=== PATIENT | male | born 1980 | race Hispanic/Latino ===

== ENCOUNTER 2023-03-13 20:09 | Inpatient (IN) | payer MEDICAID, SELFPAY ==
[2023-03-13 22:13] VITALS: BMI 36.8
[2023-03-13] MEDS ORDERED: Ondansetron PF 4 MG/2 ML Vial IVP PRN (22:27)
[2023-03-13] MEDS ORDERED: HYDROcodone/Acetaminophen 5/325 mg Tablet PO PRN ×2 (22:27→23:03)
[2023-03-14] MEDS ORDERED: HumaLOG 300 UNITS/3 ML VIAL SC SCH (05:00)
[2023-03-14 07:29] LABS: #Monocytes 0.9 thou/uL (0.11-0.59); #Neutrophils 5.6 thou/uL (1.40-6.50); %Basophils 0.1 % (0.0-1.0); %Eosinophils 0.5 % (0.0-10.0); %Lymphocytes 9.6 % (21.0-51.0); %Monocytes 12.4 % (0.0-10.0); %Neutrophils 76.9 % (42.0-75.0); Hemoglobin 10.9 g/dL (14.0-18.0); Mean Corpuscular HGB CONC 30.2 g/dL (32.0-36.0); Mean Corpuscular Hemoglobin 25.4 pg (27.0-31.0); Mean Corpuscular Volume 84.1 fl (78.0-98.0); Mean Platelet Volume 11.3 fL (7.4-10.4); Platelet Count 313 10x3/uL (130-400); RBC Distribution Width 14.9 % (11.5-14.5); Red Blood Cell (RBC) Count 4.29 mill/uL (4.70-6.10); White Blood Cell (WBC) Count 7.3 10x3/uL (4.8-10.8)
[2023-03-14 07:49] LABS: Anion Gap 14 mmol/L (10-20); BUN (Urea Nitrogen) 5 mg/dL (8.9-20.6); Calc. Creatinine Clearance 259 mL/min (70-130); Calcium 8.7 mg/dL (7.8-10.44); Carbon Dioxide 28 mmol/L (22-29); Chloride 103 mmol/L (98-107); Estimated GFR 120; Glucose 181 mg/dL (70-105); Potassium 4.1 mmol/L (3.5-5.1); Sodium 141 mmol/L (136-145)
[2023-03-14] MEDS: Morphine 2 MG/ML VIAL SLOW IVP PRN (08:12)
[2023-03-14] MEDS: Famotidine/PF 20 mg/2ml Vial SLOW IVP SCH ×2 (08:12→20:46)
[2023-03-14] MEDS ORDERED: [UNRECOGNIZED DRUG - OTHER] PO SCH ×2 (09:00→11:30)
[2023-03-14] MEDS ORDERED: Iopamidol-370 76% 500 ML MDV (1 ML CHARGE) ONE (09:28)
[2023-03-14] MEDS ORDERED: Dextrose 50% Abboject 50 ML SYRINGE SLOW IVP PRN (10:57)
[2023-03-14] MEDS ORDERED: Glucagon 1 MG/ML KIT IM PRN (10:57)
[2023-03-14] MEDS ORDERED: Dextrose 5% in Water 1,000 ML IV PRN (10:57)
[2023-03-14] MEDS ORDERED: Furosemide 40 MG/4 ML VIAL SLOW IVP SCH (14:00)
[2023-03-14] MEDS: Insulin Regular 300 UNITS/3 ML VIAL SC PRN (18:18)
[2023-03-15 06:43] LABS: #Monocytes 0.8 thou/uL (0.11-0.59); #Neutrophils 7.7 thou/uL (1.40-6.50); %Basophils 0.1 % (0.0-1.0); %Eosinophils 0.1 % (0.0-10.0); %Lymphocytes 6.5 % (21.0-51.0); %Monocytes 9.1 % (0.0-10.0); %Neutrophils 83.8 % (42.0-75.0); Hemoglobin 11.4 g/dL (14.0-18.0); Mean Corpuscular HGB CONC 30.6 g/dL (32.0-36.0); Mean Corpuscular Hemoglobin 25.7 pg (27.0-31.0); Mean Platelet Volume 11.4 fL (7.4-10.4); Platelet Count 314 10x3/uL (130-400); RBC Distribution Width 14.7 % (11.5-14.5); Red Blood Cell (RBC) Count 4.44 mill/uL (4.70-6.10); White Blood Cell (WBC) Count 9.2 10x3/uL (4.8-10.8)
[2023-03-15 07:05] LABS: Anion Gap 16 mmol/L (10-20); Carbon Dioxide 26 mmol/L (22-29); Chloride 102 mmol/L (98-107); Potassium 3.7 mmol/L (3.5-5.1); Sodium 140 mmol/L (136-145)
[2023-03-15 07:06] LABS: BUN (Urea Nitrogen) 4 mg/dL (8.9-20.6); Calc. Creatinine Clearance 227 mL/min (70-130); Calcium 8.8 mg/dL (7.8-10.44); Estimated GFR 116; Glucose 233 mg/dL (70-105)
[2023-03-15] MEDS: Famotidine/PF 20 mg/2ml Vial SLOW IVP SCH (08:28)
[2023-03-15] MEDS: Morphine 2 MG/ML VIAL SLOW IVP PRN (08:29)
[2023-03-15] MEDS ORDERED: [UNRECOGNIZED DRUG - OTHER] PO SCH (09:00)
[2023-03-15] MEDS ORDERED: Lidocaine 1% (PF) 30 ML VIAL ONE (10:02)
[2023-03-15 10:53] LABS: Fluid, pH - Pleural Fld 7.478 (7.60 - 7.66)
[2023-03-15 11:50] LABS: Pleural Fluid, Protein 5.1 g/dL
[2023-03-15 12:48] LABS: RBC Count-Automated (BF) 13739 /cu.mm; WBC/Nucleated-Auto (BF) 1385 /cu.mm
[2023-03-15 12:49] LABS: Body Fluid Source Thoracentesis Fluid; Clarity Cloudy/Turbid (Clear); Tube # EDTA
[2023-03-15 12:50] LABS: BF Color Pink
[2023-03-15 12:57] LABS: BF Segmented Neutrophils 41 %; Cell Count Non Hematic 18 %; Eosinophils 5 %; Lymphocytes 36 %
[2023-03-15] MEDS: Insulin Regular 300 UNITS/3 ML VIAL SC PRN (13:10)
[2023-03-15 15:09] VITALS: BP 144/97; TEMP 98.3
== END 2023-03-15 15:08 | disposition home or self-care (01) | DRG 642 ==
LOC: T4-A 21:30 → OBSVTOIN 03-14 14:24
PROVIDERS: ADMIT Internal Medicine; ATTEND Internal Medicine
PROC: 0W9B3ZZ Drainage of Left Pleural Cavity, Percutaneous Approach (ICD-10-PCS; principal; 2023-03-15)
DX: C96.6 Unifocal Langerhans-cell histiocytosis (principal); C79.51 Secondary malignant neoplasm of bone; J98.11 Atelectasis; J91.0 Malignant pleural effusion; E11.9 Type 2 diabetes mellitus without complications; Z79.899 Other long term (current) drug therapy; Z79.84 Long term (current) use of oral hypoglycemic drugs
CPT/HCPCS: 36415; 36416; 70553; 74177; 80048; 82150; 82465; 82945; 83615; 83986; 84157; 84478; 85025; 85060; 87070; 87205; 88112; 88305; 89051; 96374; 96375; G0378; J1815; J2272; Q9967; S0028

== ENCOUNTER 2024-02-06 14:09 | Inpatient (IN) | payer MEDICAID, SELFPAY ==
[2024-02-06 14:41] VITALS: BMI 37.5
[2024-02-06] MEDS ORDERED: Ondansetron PF 4 MG/2 ML Vial IVP PRN (16:25)
[2024-02-06] MEDS ORDERED: Ondansetron ODT 4 MG TAB PO PRN (16:25)
[2024-02-06] MEDS ORDERED: Acetaminophen 650 MG Suppository PR PRN (16:25)
[2024-02-06] MEDS ORDERED: levETIRAcetam 500 MG (5 mL) VIAL SLOW IVP SCH (16:45)
[2024-02-06] MEDS ORDERED: Dextrose 50% Abboject 50 ML SYRINGE SLOW IVP PRN (17:29)
[2024-02-06] MEDS ORDERED: Glucagon 1 MG/ML KIT IM PRN (17:29)
[2024-02-06] MEDS ORDERED: Dextrose 5% in Water 1,000 ML IV PRN (17:29)
[2024-02-06] MEDS: cefTRIAXone\\ROCEPHIN 2 GM in Sodium Chloride 0.9% 100 ML IVPB SCH (17:47)
[2024-02-06] MEDS: levETIRAcetam 500 MG (5 mL) VIAL SLOW IVP SCH (17:48)
[2024-02-06] MEDS: Acetaminophen 325 MG TAB PO PRN (17:48)
[2024-02-06] MEDS: Vancomycin (BATCH) 2.5 GM in Premix 1 BAG IVPB SCH (18:12)
[2024-02-06] MEDS ORDERED: Vancomycin 1 GM in Sodium Chloride 0.9% 250 ML 250 ML IVPB SCH (21:00)
[2024-02-06] MEDS: Insulin Regular, Human 100 UNIT/ML 10 ML VIAL SC PRN (21:05)
[2024-02-06] MEDS: ACYCLOVIR SODIUM IVPB SCH (23:15)
[2024-02-06] MEDS: SODIUM CHLORIDE 0.9% IVPB SCH (23:15)
[2024-02-07] MEDS: Vancomycin (BATCH) 1.5 GM in Premix 1 BAG IVPB SCH ×2 (01:03→15:14)
[2024-02-07 04:55] LABS: #Basophils Less than 0.03 10x3/uL (0.0-0.2); #Eosinphils Less than 0.03 10x3/uL (0.0-0.7); %Basophils 0.1 % (0.0-1.0); %Eosinophils 0.3 % (0.0-10.0); %Lymphocytes 9.5 % (21.0-51.0); %Monocytes 8.6 % (0.0-10.0); %Neutrophils 81.2 % (42.0-75.0); Hematocrit 42.8 % (42.0-52.0); Hemoglobin 13.2 g/dL (14.0-18.0); Mean Corpuscular HGB CONC 30.8 g/dL (32.0-36.0); Mean Corpuscular Hemoglobin 26.9 pg (27.0-31.0); Mean Corpuscular Volume 87.2 fL (78.0-98.0); Mean Platelet Volume 11.4 fL (7.4-10.4); Platelet Count 188 10x3/uL (130-400); RBC Distribution Width 14.5 % (11.5-14.5); Red Blood Cell (RBC) Count 4.91 mill/uL (4.70-6.10)
[2024-02-07 05:29] LABS: Vancomycin, Random 20.8 ug/mL (See Comment)
[2024-02-07 05:39] LABS: Anion Gap 9 mmol/L (10-20); BUN (Urea Nitrogen) 6 mg/dL (8.9-20.6); Calc. Creatinine Clearance 207 mL/min (70-130); Calcium 8.8 mg/dL (7.8-10.44); Carbon Dioxide 37 mmol/L (22-29); Chloride 99 mmol/L (98-107); Estimated GFR 112; Glucose 289 mg/dL (70-105); Potassium 3.5 mmol/L (3.5-5.1); Sodium 141 mmol/L (136-145)
[2024-02-07] MEDS: levETIRAcetam 500 MG (5 mL) VIAL SLOW IVP SCH (09:40)
[2024-02-07] MEDS: Insulin Regular, Human 100 UNIT/ML 10 ML VIAL SC PRN (11:45)
[2024-02-07] MEDS ORDERED: Sodium Bicarbonate 2.5 MEQ/5 ML SDV ONE (12:47)
[2024-02-07] MEDS: ALPRAZolam 1 MG TAB PO PRN (15:14)
[2024-02-07 15:29] LABS: CSF Source CSF; Clarity Clear (Clear); Tube # 4
[2024-02-07 15:35] LABS: CSF, Protein 30.1 mg/dL (15-40)
[2024-02-07] MEDS ORDERED: HYDROcodone/Acetaminophen 5/325 mg Tablet PO PRN (17:41)
[2024-02-07] MEDS: Senokot S 8.6-50 MG TAB PO SCH ×2 (19:13→21:01)
[2024-02-07] MEDS: Furosemide 40 MG TAB PO SCH (21:00)
[2024-02-07] MEDS: levETIRAcetam 500 MG TAB PO SCH (21:00)
[2024-02-08 01:07] LABS: Amphetamine Not Detected (NotDetected); Barbiturates Screen Not Detected (NotDetected); Benzodiazepine Screen Not Detected (NotDetected); Cocaine Metabolite Screen Not Detected (NotDetected); Methadone Not Detected (NotDetected); Methamphetamine Not Detected (NotDetected); Opiate Screen Not Detected (NotDetected); Oxycodone Screen Not Detected (NotDetected); Phencyclidine (PCP) Not Detected (NotDetected); THC/Cannabinoid Screen Not Detected (NotDetected); Tricyclic Screen Not Detected (NotDetected)
[2024-02-08 06:16] LABS: #Basophils Less than 0.03 10x3/uL (0.0-0.2); %Basophils 0.2 % (0.0-1.0); %Lymphocytes 21.9 % (21.0-51.0); %Neutrophils 57.3 % (42.0-75.0); Hematocrit 48.7 % (42.0-52.0); Mean Corpuscular HGB CONC 30.8 g/dL (32.0-36.0); Mean Corpuscular Hemoglobin 26.8 pg (27.0-31.0); Mean Corpuscular Volume 87.1 fL (78.0-98.0); Mean Platelet Volume 12.6 fL (7.4-10.4); Platelet Count 171 10x3/uL (130-400); RBC Distribution Width 14.2 % (11.5-14.5); Red Blood Cell (RBC) Count 5.59 mill/uL (4.70-6.10)
[2024-02-08 06:30] LABS: Anion Gap 12 mmol/L (10-20); BUN (Urea Nitrogen) 5 mg/dL (8.9-20.6); Calc. Creatinine Clearance 226 mL/min (70-130); Calcium 9.2 mg/dL (7.8-10.44); Carbon Dioxide 34 mmol/L (22-29); Chloride 99 mmol/L (98-107); Estimated GFR 115; Glucose 215 mg/dL (70-105); Potassium 4.3 mmol/L (3.5-5.1); Sodium 141 mmol/L (136-145)
[2024-02-08] MEDS ORDERED: cefTRIAXone\\ROCEPHIN 1 GM in Sodium Chloride 0.9% 100 ML IVPB SCH (09:00)
[2024-02-08] MEDS: Lisinopril 10 MG TAB PO SCH (09:23)
[2024-02-08] MEDS: metFORMIN 500 MG TAB PO SCH (09:23)
[2024-02-08] MEDS: Atorvastatin Calcium 20 MG TAB PO SCH (09:23)
[2024-02-08] MEDS: Alogliptin 25 MG TAB PO SCH (09:32)
[2024-02-08] MEDS: [UNRECOGNIZED DRUG - OTHER] PO SCH (11:22)
[2024-02-08] MEDS: Metoprolol Tartrate 50 MG TAB PO SCH (20:25)
[2024-02-09 03:35] LABS: #Basophils Less than 0.03 10x3/uL (0.0-0.2); %Basophils 0.3 % (0.0-1.0); %Eosinophils 3.6 % (0.0-10.0); %Lymphocytes 22.2 % (21.0-51.0); %Monocytes 11.6 % (0.0-10.0); Hematocrit 42.1 % (42.0-52.0); Mean Corpuscular HGB CONC 30.9 g/dL (32.0-36.0); Mean Corpuscular Hemoglobin 26.7 pg (27.0-31.0); Mean Corpuscular Volume 86.4 fL (78.0-98.0); Mean Platelet Volume 11.9 fL (7.4-10.4); Platelet Count 212 10x3/uL (130-400); Red Blood Cell (RBC) Count 4.87 mill/uL (4.70-6.10)
[2024-02-09 03:52] LABS: Anion Gap 12 mmol/L (10-20); BUN (Urea Nitrogen) 7 mg/dL (8.9-20.6); Calc. Creatinine Clearance 199 mL/min (70-130); Calcium 8.9 mg/dL (7.8-10.44); Carbon Dioxide 39 mmol/L (22-29); Chloride 92 mmol/L (98-107); Estimated GFR 110; Glucose 307 mg/dL (70-105); Potassium 3.5 mmol/L (3.5-5.1); Sodium 139 mmol/L (136-145)
[2024-02-09] MEDS: [UNRECOGNIZED DRUG - OTHER] PO SCH (09:05)
[2024-02-09 11:31] VITALS: BP 178/99; TEMP 97.4
== END 2024-02-09 12:52 | disposition home or self-care (01) | DRG 871 ==
LOC: 2NO 14:09
PROVIDERS: ADMIT Family Medicine; ATTEND Internal Medicine
PROC: 009U3ZX Drainage of Spinal Canal, Percutaneous Approach, Diagnostic (ICD-10-PCS; principal; 2024-02-07)
PROC: B01B1ZZ Fluoroscopy of Spinal Cord using Low Osmolar Contrast (ICD-10-PCS; 2024-02-07)
PROC: 4A00X4Z Measurement of Central Nervous Electrical Activity, External Approach (ICD-10-PCS; 2024-02-07)
PROC: 3E03329 Introduction of Other Anti-infective into Peripheral Vein, Percutaneous Approach (ICD-10-PCS; 2024-02-07)
DX: A41.9 Sepsis, unspecified organism (principal); J86.9 Pyothorax without fistula; R65.21 Severe sepsis with septic shock; C96.6 Unifocal Langerhans-cell histiocytosis; J91.0 Malignant pleural effusion; I10 Essential (primary) hypertension; E78.5 Hyperlipidemia, unspecified; E11.9 Type 2 diabetes mellitus without complications; J45.909 Unspecified asthma, uncomplicated; G93.89 Other specified disorders of brain; H53.149 Visual discomfort, unspecified; R56.9 Unspecified convulsions; R59.0 Localized enlarged lymph nodes; Z91.014 Allergy to mammalian meats; Z79.899 Other long term (current) drug therapy; Z98.890 Other specified postprocedural states; Z90.49 Acquired absence of other specified parts of digestive tract
CPT/HCPCS: 36415; 36416; 62270; 70553; 80048; 80202; 80306; 82945; 84145; 84157; 85025; 86592; 86612; 86635; 86698; 87070; 87205; 87529; 87798; 87899; 89051; 95700; 95711; 95819; J0133; J0696; J1815; J1953; J3370; J3490

== ENCOUNTER 2024-05-04 16:57 | Inpatient (IN) | payer MEDICAID, SELFPAY ==
[2024-05-04] MEDS ORDERED: LORazepam 2 MG/ML SYR.(CARPUJECT) ONE (17:04)
[2024-05-04] MEDS ORDERED: Acetaminophen 650 MG Suppository ONE (17:04)
[2024-05-04] MEDS ORDERED: Cefepime 2 GM VIAL ONE (17:13)
[2024-05-04] MEDS ORDERED: Sodium Chloride 0.9% 100 ML ONE (17:13)
[2024-05-04 17:20] LABS: #Basophils Less than 0.03 10x3/uL (0.0-0.2); %Basophils 0.1 % (0.0-1.0); %Eosinophils 0.6 % (0.0-10.0); %Lymphocytes 11.1 % (21.0-51.0); %Monocytes 2.2 % (0.0-10.0); %Neutrophils 85.5 % (42.0-75.0); Hematocrit 51.9 % (42.0-52.0); Hemoglobin 16.3 g/dL (14.0-18.0); Mean Corpuscular HGB CONC 31.4 g/dL (32.0-36.0); Mean Corpuscular Hemoglobin 28.5 pg (27.0-31.0); Mean Corpuscular Volume 90.7 fL (78.0-98.0); Mean Platelet Volume 11.9 fL (7.4-10.4); Platelet Count 224 10x3/uL (130-400); Red Blood Cell (RBC) Count 5.72 mill/uL (4.70-6.10)
[2024-05-04] MEDS ORDERED: LevoFLOXacin 750 mg/D5W 150 ml Premix Bag ONE (17:28)
[2024-05-04 17:34] LABS: INR-International Normal Ratio 0.9; PTT 29.2 sec (22.9-36.1)
[2024-05-04 17:43] LABS: ALT (SGPT) 11 U/L (8-55); AST (SGOT) 18 U/L (5-34); Albumin 3.6 g/dL (3.5-5.0); Alkaline Phosphatase 148 U/L (40-110); Anion Gap 16 mmol/L (10-20); BUN (Urea Nitrogen) 9 mg/dL (8.9-20.6); Bilirubin, Total 0.5 mg/dL (0.2-1.2); Calc. Creatinine Clearance 0 mL/min (70-130); Calcium 9.2 mg/dL (7.8-10.44); Carbon Dioxide 37 mmol/L (22-29); Chloride 94 mmol/L (98-107); Estimated GFR 104; Globulin 5.2 g/dL (2.4-3.5); Glucose 259 mg/dL (70-105); Potassium 4.1 mmol/L (3.5-5.1); Protein, Total 8.8 g/dL (6.0-8.3); Sodium 143 mmol/L (136-145)
[2024-05-04 17:50] LABS: Actual Bicarbonate (HCO3a) 39.6 mEq/L (22-28); Analyzer IN Cardio ER; Base Excess (BEa) 8.4 mEq/L (-2.0 to +3.0); Calcium, Ionized (arterial) 1.12 mmol/L (1.12-1.30); Carboxyhemoglobin (COHb) 1.5 gm% (0.0-3.0); Hematocrit-ABG 48 % (42.0-52.0); Hemoglobin (Hb) 16.3 g/dL (14.0-18.0); O2 Tension (PaO2), arterial 90.6 mmHg (80.0-100.0); Potassium - ABG Lab 3.68 mmol/L (3.70-5.30); pH, Arterial 7.274 (7.35-7.45)
[2024-05-04 17:51] LABS: CO2 Tension 87.3 mmHg (35.0-45.0); Puncture Site Right Radial artery
[2024-05-04 17:52] LABS: ALV-art Gradient 228.075 mmHg (0-20)
[2024-05-04 18:18] LABS: Influenza A by NAA Not Detected (NotDetected); Influenza B by NAA Not Detected (NotDetected); SARS-CoV-2 NAA Rapid Test Not Detected (NotDetected)
[2024-05-04 18:37] LABS: Actual Bicarbonate (HCO3a) 37.2 mEq/L (22-28); Analyzer IN Cardio ER; Base Excess (BEa) 7.6 mEq/L (-2.0 to +3.0); Calcium, Ionized (arterial) 1.08 mmol/L (1.12-1.30); Carboxyhemoglobin (COHb) 1.2 gm% (0.0-3.0); Hematocrit-ABG 46 % (42.0-52.0); Hemoglobin (Hb) 15.6 g/dL (14.0-18.0); O2 Tension (PaO2), arterial 92.2 mmHg (80.0-100.0); Potassium - ABG Lab 3.49 mmol/L (3.70-5.30); pH, Arterial 7.313 (7.35-7.45)
[2024-05-04 18:46] LABS: Puncture Site Left Radial artery
[2024-05-04] MEDS ORDERED: traMADol HCl 50 MG TAB PO PRN (18:50)
[2024-05-04] MEDS ORDERED: Glucagon 1 MG/ML KIT IM PRN (18:53)
[2024-05-04] MEDS ORDERED: Dextrose 50% Abboject 50 ML SYRINGE SLOW IVP PRN (18:53)
[2024-05-04] MEDS ORDERED: Dextrose 5% in Water 1,000 ML IV PRN (18:53)
[2024-05-04] MEDS ORDERED: methylPREDNISolone Sod Succ/PF 125 MG/2 ML VIAL ONE (19:09)
[2024-05-04] MEDS ORDERED: Magnesium 2 GM/50 ML BAG (IN WATER) ONE (19:09)
[2024-05-04 19:26] LABS: Bacteria/HPF None Seen HPF (None Seen); Bilirubin Negative (Negative); Blood, Urine Negative (Negative); CAUTI Indications for Culture Dysuria,urgency,freq; Clarity Clear (Clear); Glucose, Urine (Dipstick) 300 mg/dL (Negative); Ketone, Urine Trace mg/dL (Negative); Leukocyte Negative Leu/uL (Negative); Nitrite Negative (Negative); Protein, Urine (Dipstick) 20 mg/dL (Neg-Trace); Specific Gravity, Urine 1.009 (1.002-1.036); Squamous Epithelial None Seen HPF (0-3); Urobilinogen Normal mg/dL (Less than 2); WBC/HPF 0-3 HPF (0-3); pH, Urine 7.5 (5.0-9.0)
[2024-05-04 19:41] LABS: Urine Culture Reflex No No
[2024-05-04] MEDS ORDERED: Clindamycin/D5W 900 MG in Premix 1 BAG IVPB SCH ×2 (20:00→22:00)
[2024-05-04] MEDS ORDERED: cefTRIAXone\\ROCEPHIN 2 GM in Sodium Chloride 0.9% 100 ML IVPB SCH (21:00)
[2024-05-04] MEDS ORDERED: Famotidine 20 MG TAB PO SCH (21:00)
[2024-05-04] MEDS ORDERED: Famotidine/PF 20 mg/2ml Vial SLOW IVP SCH (21:00)
[2024-05-04] MEDS ORDERED: HYDROcodone/Acetaminophen 5/325 mg Tablet PO PRN (21:23)
[2024-05-04 21:46] LABS: Actual Bicarbonate (HCO3a) 38.6 mEq/L (22-28); Base Excess (BEa) 7.1 mEq/L (-2.0 to +3.0); Calcium, Ionized (arterial) 1.11 mmol/L (1.12-1.30); Carboxyhemoglobin (COHb) 1.2 gm% (0.0-3.0); Hematocrit-ABG 43 % (42.0-52.0); Hemoglobin (Hb) 14.7 g/dL (14.0-18.0); O2 Tension (PaO2), arterial 104.9 mmHg (80.0-100.0); pH, Arterial 7.231 (7.35-7.45)
[2024-05-04 21:47] LABS: Puncture Site Right Brachial art
[2024-05-04] MEDS: NOREPINEPHRINE 8 MG/250 ML-D5W 250 ML IVPB SCH (22:00)
[2024-05-04] MEDS ORDERED: Azithromycin 500 MG in Sodium Chloride 0.9% 250 ML 250 ML IVPB SCH (22:00)
[2024-05-04] MEDS: Midazolam HCl 2 mg/2 ml Vial SLOW IVP SCH (22:11)
[2024-05-04] MEDS: Etomidate 40 MG (20 mL) VIAL IVP SCH (22:11)
[2024-05-04] MEDS ORDERED: Etomidate 40 MG (20 mL) VIAL ONE (22:15)
[2024-05-04] MEDS ORDERED: Rocuronium Bromide 10 MG/ML (10ML VIAL) ONE (22:15)
[2024-05-04] MEDS ORDERED: PROPOFOL 200 MG/20 ML VIAL ONE (22:15)
[2024-05-04] MEDS ORDERED: Ventilator Sedation Protocol 1 EACH FS SCH (22:17)
[2024-05-04] MEDS: Fentanyl CADD 100 ML IV SCH (22:20)
[2024-05-04] MEDS: Rocuronium Bromide 10 MG/ML (10ML VIAL) IVP SCH (22:25)
[2024-05-04] MEDS: Ipratropium/Albuterol 3 ML NEB NEB SCH (22:29)
[2024-05-04] MEDS ORDERED: DISCONTINUE PREVIOUS NARCOTIC PAIN MEDICATIONS AND BENZODIAZEPINES FS SCH (22:30)
[2024-05-04] MEDS ORDERED: Fentanyl BOLUS 250 ML IVPB PRN (22:30)
[2024-05-04] MEDS ORDERED: Propofol BOLUS 1,000 MG/100 ML VIAL IV PRN (22:30)
[2024-05-04] MEDS: Vancomycin (BATCH) 2 GM in Premix 1 BAG IVPB SCH (23:28)
[2024-05-04 23:35] LABS: Actual Bicarbonate (HCO3a) 30.4 mEq/L (22-28); Base Excess (BEa) 7.5 mEq/L (-2.0 to +3.0); CO2 Tension 36.8 mmHg (35.0-45.0); Calcium, Ionized (arterial) 1.04 mmol/L (1.12-1.30); Carboxyhemoglobin (COHb) 1.3 gm% (0.0-3.0); Hematocrit-ABG 44 % (42.0-52.0); O2 Tension (PaO2), arterial 80.6 mmHg (80.0-100.0); Potassium - ABG Lab 3.64 mmol/L (3.70-5.30); pH, Arterial 7.535 (7.35-7.45)
[2024-05-04] MEDS: Lactated Ringer's 1,000 ML IV SCH (23:36)
[2024-05-04] MEDS: Sodium Chloride 0.9% 500 ML IVPB SCH (23:36)
[2024-05-04] MEDS: Fentanyl CADD 100 ML ONE (23:37)
[2024-05-04] MEDS: PROPOFOL 200 MG/20 ML VIAL IV SCH (23:39)
[2024-05-04 23:46] LABS: Puncture Site Left Radial artery
[2024-05-04 23:50] LABS: Bilirubin Negative (Negative); Blood, Urine 3+ (Negative); CAUTI Indications for Culture Alt mental st,lethar; Clarity Turbid (Clear); Glucose, Urine (Dipstick) 100 mg/dL (Negative); Ketone, Urine Negative (Negative); Leukocyte Negative Leu/uL (Negative); Nitrite Negative (Negative); Protein, Urine (Dipstick) 30 mg/dL (Neg-Trace); RBC/HPF Greater than 50 HPF (0-3); Specific Gravity, Urine 1.011 (1.002-1.036); Squamous Epithelial 0-3 HPF (0-3); Urobilinogen Normal mg/dL (Less than 2)
[2024-05-04 23:59] LABS: Bacteria/HPF 1+ HPF (None Seen)
[2024-05-05] LABS: Calcium Oxalate Crystals 1+ HPF (None Seen); Urine Culture Reflex No No
[2024-05-05] MEDS: Lorazepam 2 MG/ML VIAL SLOW IVP PRN (00:02)
[2024-05-05] MEDS: Propofol 1,000 MG/100 ML VIAL IV PRN (00:02)
[2024-05-05] MEDS: Acetaminophen 325 MG TAB PO SCH (00:02)
[2024-05-05] MEDS: Propofol 1,000 MG/100 ML VIAL IV SCH (00:29)
[2024-05-05] MEDS: Cefepime 2 GM in Sodium Chloride 0.9% 100 ML IVPB SCH (01:49)
[2024-05-05] MEDS: NOREPINEPHRINE 8 MG/250 ML-D5W 250 ML ONE (04:04)
[2024-05-05] MEDS: levETIRAcetam 500 MG (5 mL) VIAL SLOW IVP SCH (06:46)
[2024-05-05] MEDS: methylPREDNISolone Sod Succ 40 MG VIAL IVP SCH (06:46)
[2024-05-05] MEDS: Pantoprazole 40 MG VIAL IVP SCH (08:11)
[2024-05-05] MEDS: Atorvastatin Calcium 20 MG TAB PO SCH (08:11)
[2024-05-05] MEDS ORDERED: levETIRAcetam 500 MG TAB PO SCH (09:00)
[2024-05-05] MEDS ORDERED: Enoxaparin 40 MG (0.4 mL) SYRINGE SC SCH (09:00)
[2024-05-05 09:32] LABS: #Basophils Less than 0.03 10x3/uL (0.0-0.2); #Eosinophils Less than 0.03 10x3/uL (0.0-0.7); %Basophils 0.1 % (0.0-1.0); %Lymphocytes 2.2 % (21.0-51.0); %Monocytes 3.5 % (0.0-10.0); Hematocrit 40.7 % (42.0-52.0); Hemoglobin 12.9 g/dL (14.0-18.0); Mean Corpuscular HGB CONC 31.7 g/dL (32.0-36.0); Mean Corpuscular Hemoglobin 28.5 pg (27.0-31.0); Mean Platelet Volume 12.4 fL (7.4-10.4); Platelet Count 173 10x3/uL (130-400); RBC Distribution Width 14.2 % (11.5-14.5); Red Blood Cell (RBC) Count 4.52 mill/uL (4.70-6.10)
[2024-05-05 09:43] LABS: Vancomycin, Random 8.7 ug/mL (See Comment)
[2024-05-05 10:07] LABS: ALT (SGPT) 8 U/L (8-55); AST (SGOT) 11 U/L (5-34); Albumin 2.2 g/dL (3.5-5.0); Alkaline Phosphatase 75 U/L (40-110); Anion Gap 17 mmol/L (10-20); BUN (Urea Nitrogen) 21 mg/dL (8.9-20.6); Bilirubin, Total 0.5 mg/dL (0.2-1.2); Calc. Creatinine Clearance 130 mL/min (70-130); Calcium 7.9 mg/dL (7.8-10.44); Carbon Dioxide 27 mmol/L (22-29); Chloride 98 mmol/L (98-107); Estimated GFR 67; Globulin 3.5 g/dL (2.4-3.5); Glucose 418 mg/dL (70-105); Potassium 3.5 mmol/L (3.5-5.1); Protein, Total 5.7 g/dL (6.0-8.3); Sodium 138 mmol/L (136-145)
[2024-05-05] MEDS: Fondaparinux Sodium 2.5 MG/0.5 ML SYRINGE SC SCH (10:19)
[2024-05-05] MEDS: Vancomycin (BATCH) 2 GM in Premix 1 BAG IVPB SCH (10:20)
[2024-05-05] MEDS: Insulin Lispro 100 UNIT/ML 10 ML VIAL SC PRN ×3 (10:29→22:11)
[2024-05-05] MEDS: Lactated Ringer's 1,000 ML IV SCH (12:04)
[2024-05-05] MEDS: Vancomycin (BATCH) 1.5 GM in Premix 1 BAG IVPB SCH (13:14)
[2024-05-05] MEDS: Insulin Glargine 30 UNITS/0.3 ML VIAL SC SCH (13:55)
[2024-05-05] MEDS: LevoFLOXacin 750 mg/D5W 750 MG in Premix 1 BAG IVPB SCH (15:42)
[2024-05-05] MEDS: Insulin Lispro 100 UNIT/ML 10 ML VIAL SC SCH (17:57)
[2024-05-05] MEDS ORDERED: Vancomycin (BATCH) 2 GM in Premix 1 BAG IVPB SCH (23:59)
[2024-05-06] MEDS: Vancomycin (BATCH) 1.5 GM in Premix 1 BAG IVPB SCH ×2 (00:26→08:35)
[2024-05-06] MEDS ORDERED: Acetaminophen 325 MG (10.15 ML) UDCUP PO PRN (01:31)
[2024-05-06 05:01] LABS: #Basophils Less than 0.03 10x3/uL (0.0-0.2); #Eosinophils Less than 0.03 10x3/uL (0.0-0.7); %Basophils 0.1 % (0.0-1.0); %Eosinophils 0.1 % (0.0-10.0); %Lymphocytes 3.1 % (21.0-51.0); %Monocytes 5.3 % (0.0-10.0); %Neutrophils 89.2 % (42.0-75.0); Hematocrit 39.6 % (42.0-52.0); Hemoglobin 12.7 g/dL (14.0-18.0); Mean Corpuscular HGB CONC 32.1 g/dL (32.0-36.0); Mean Corpuscular Hemoglobin 28.7 pg (27.0-31.0); Mean Corpuscular Volume 89.4 fL (78.0-98.0); Mean Platelet Volume 12.2 fL (7.4-10.4); Platelet Count 162 10x3/uL (130-400); Red Blood Cell (RBC) Count 4.43 mill/uL (4.70-6.10)
[2024-05-06 05:13] LABS: Vancomycin, Random 7.6 ug/mL (See Comment)
[2024-05-06 05:42] LABS: ALT (SGPT) 9 U/L (8-55); AST (SGOT) 16 U/L (5-34); Albumin 2.1 g/dL (3.5-5.0); Alkaline Phosphatase 73 U/L (40-110); Anion Gap 16 mmol/L (10-20); BUN (Urea Nitrogen) 25 mg/dL (8.9-20.6); Bilirubin, Total 0.4 mg/dL (0.2-1.2); Calc. Creatinine Clearance 203 mL/min (70-130); Calcium 8.2 mg/dL (7.8-10.44); Carbon Dioxide 29 mmol/L (22-29); Chloride 98 mmol/L (98-107); Estimated GFR 109; Globulin 3.8 g/dL (2.4-3.5); Glucose 245 mg/dL (70-105); Potassium 2.6 mmol/L (3.5-5.1); Protein, Total 5.9 g/dL (6.0-8.3); Sodium 140 mmol/L (136-145)
[2024-05-06] MEDS ORDERED: Potassium Chloride 40 MEQ in Premix 1 BAG IVPB SCH (05:45)
[2024-05-06] MEDS: Potassium Chloride 20 MEQ in Premix 1 BAG IVPB SCH ×2 (05:56→22:43)
[2024-05-06] MEDS: Vancomycin 1 GM in Premix 1 BAG IVPB SCH (07:17)
[2024-05-06 08:32] LABS: Actual Bicarbonate (HCO3a) 31.1 mEq/L (22-28); Base Excess (BEa) 9.6 mEq/L (-2.0 to +3.0); CO2 Tension 31.7 mmHg (35.0-45.0); Calcium, Ionized (arterial) 1.08 mmol/L (1.12-1.30); Carboxyhemoglobin (COHb) 0.4 gm% (0.0-3.0); Hematocrit-ABG 38 % (42.0-52.0); O2 Tension (PaO2), arterial 76.1 mmHg (80.0-100.0); Potassium - ABG Lab 2.92 mmol/L (3.70-5.30)
[2024-05-06 08:35] LABS: ALV-art Gradient 240.775 mmHg (0-20); Puncture Site Right Radial artery; pH, Arterial 7.609 (7.35-7.45)
[2024-05-06] MEDS: Insulin Glargine 30 UNITS/0.3 ML VIAL SC SCH (08:35)
[2024-05-06] MEDS: methylPREDNISolone Sod Succ 40 MG VIAL IVP SCH (08:36)
[2024-05-06] MEDS ORDERED: Iopamidol-370 76% 500 ML MDV (1 ML CHARGE) ONE (10:34)
[2024-05-06 13:03] LABS: Magnesium 1.8 mg/dL (1.6-2.6)
[2024-05-06 13:35] LABS: Anion Gap 15 mmol/L (10-20); BUN (Urea Nitrogen) 22 mg/dL (8.9-20.6); Calc. Creatinine Clearance 213 mL/min (70-130); Calcium 8.6 mg/dL (7.8-10.44); Carbon Dioxide 29 mmol/L (22-29); Chloride 100 mmol/L (98-107); Estimated GFR 110; Glucose 274 mg/dL (70-105); Potassium 3.3 mmol/L (3.5-5.1); Sodium 141 mmol/L (136-145)
[2024-05-06] MEDS ORDERED: Electrolyte Replacement Protocol FS PRN (13:45)
[2024-05-06] MEDS: Electrolyte Replacement Protocol 1 EACH FS ONE (14:57)
[2024-05-06 15:06] LABS: Fluid, pH - Pleural Fld 7.432 (7.60 - 7.66)
[2024-05-06] MEDS: Magnesium 2 GM/50 ML(in water) 2 GM in Premix 1 BAG IVPB SCH (15:07)
[2024-05-06 16:07] LABS: Fluid, Triglycerides 23 mg/dL (Not Available); Pleural Fluid, Amylase Less than 30 U/L (Not Available); Pleural Fluid, Glucose 260 mg/dL; Pleural Fluid, LDH 157 U/L (Not Available)
[2024-05-06 16:23] LABS: RBC Count-Automated (BF) 512 /cu.mm; WBC/Nucleated-Auto (BF) 11 /cu.mm
[2024-05-06 18:21] LABS: BF Color Yellow; Body Fluid Source Thoracentesis Fluid; Clarity Clear (Clear); Tube # EDTA
[2024-05-06] MEDS: Cefepime 2 GM in Sodium Chloride 0.9% 100 ML IVPB SCH (21:04)
[2024-05-06 22:20] LABS: BF Segmented Neutrophils 16 %; Cell Count Non Hematic 3 %; Lymphocytes 80 %
[2024-05-07 06:19] VITALS: BMI 39.4
[2024-05-07 08:16] LABS: Actual Bicarbonate (HCO3a) 29.9 mEq/L (22-28); Base Excess (BEa) 3.5 mEq/L (-2.0 to +3.0); CO2 Tension 53.3 mmHg (35.0-45.0); Calcium, Ionized (arterial) 1.19 mmol/L (1.12-1.30); Carboxyhemoglobin (COHb) 0.6 gm% (0.0-3.0); Hematocrit-ABG 39 % (42.0-52.0); Hemoglobin (Hb) 13.2 g/dL (14.0-18.0); O2 Tension (PaO2), arterial 79.7 mmHg (80.0-100.0); Potassium - ABG Lab 3.62 mmol/L (3.70-5.30); pH, Arterial 7.367 (7.35-7.45)
[2024-05-07 08:17] LABS: #Basophils Less than 0.03 10x3/uL (0.0-0.2); #Eosinophils Less than 0.03 10x3/uL (0.0-0.7); %Basophils 0.1 % (0.0-1.0); %Eosinophils 0.2 % (0.0-10.0); %Lymphocytes 3.9 % (21.0-51.0); %Monocytes 4.9 % (0.0-10.0); %Neutrophils 89.2 % (42.0-75.0); Hematocrit 38.8 % (42.0-52.0); Hemoglobin 11.9 g/dL (14.0-18.0); Mean Corpuscular HGB CONC 30.7 g/dL (32.0-36.0); Mean Corpuscular Hemoglobin 28.5 pg (27.0-31.0); Mean Platelet Volume 12.4 fL (7.4-10.4); Platelet Count 151 10x3/uL (130-400); RBC Distribution Width 14.3 % (11.5-14.5); Red Blood Cell (RBC) Count 4.17 mill/uL (4.70-6.10)
[2024-05-07 08:17] LABS: ALV-art Gradient 138.875 mmHg (0-20); Puncture Site Right Radial artery
[2024-05-07 08:40] LABS: ALT (SGPT) 9 U/L (8-55); AST (SGOT) 15 U/L (5-34); Alkaline Phosphatase 73 U/L (40-110); Anion Gap 11 mmol/L (10-20); BUN (Urea Nitrogen) 23 mg/dL (8.9-20.6); Bilirubin, Total 0.2 mg/dL (0.2-1.2); Calc. Creatinine Clearance 221 mL/min (70-130); Calcium 8.4 mg/dL (7.8-10.44); Carbon Dioxide 31 mmol/L (22-29); Chloride 101 mmol/L (98-107); Estimated GFR 111; Globulin 3.7 g/dL (2.4-3.5); Glucose 306 mg/dL (70-105); Magnesium 2.5 mg/dL (1.6-2.6); Potassium 3.3 mmol/L (3.5-5.1); Protein, Total 5.7 g/dL (6.0-8.3); Sodium 140 mmol/L (136-145)
[2024-05-07] MEDS: Insulin Glargine 30 UNITS/0.3 ML VIAL SC SCH ×3 (09:43→12:41)
[2024-05-07] MEDS: Furosemide 40 MG (4 mL) VIAL SLOW IVP SCH (12:40)
[2024-05-07] MEDS: Potassium Chloride 20 MEQ in Premix 1 BAG IVPB SCH (12:41)
[2024-05-07 20:49] LABS: Potassium 4.5 mmol/L (3.5-5.1)
[2024-05-07] MEDS: Polyethylene Glycol 3350 17 GM Packet PO PRN (21:12)
[2024-05-07] MEDS: Nystatin Powder 15 GM BOT TOP PRN (21:12)
[2024-05-08 04:58] LABS: #Basophils Less than 0.03 10x3/uL (0.0-0.2); #Eosinophils Less than 0.03 10x3/uL (0.0-0.7); %Basophils 0.1 % (0.0-1.0); %Eosinophils 0.1 % (0.0-10.0); %Lymphocytes 8.3 % (21.0-51.0); %Monocytes 6.7 % (0.0-10.0); Hematocrit 38.5 % (42.0-52.0); Hemoglobin 11.8 g/dL (14.0-18.0); Mean Corpuscular HGB CONC 30.6 g/dL (32.0-36.0); Mean Corpuscular Hemoglobin 28.4 pg (27.0-31.0); Mean Corpuscular Volume 92.5 fL (78.0-98.0); Mean Platelet Volume 12.9 fL (7.4-10.4); Platelet Count 170 10x3/uL (130-400); RBC Distribution Width 14.2 % (11.5-14.5); Red Blood Cell (RBC) Count 4.16 mill/uL (4.70-6.10)
[2024-05-08 05:04] LABS: ALT (SGPT) 10 U/L (8-55); AST (SGOT) 14 U/L (5-34); Albumin 2.1 g/dL (3.5-5.0); Alkaline Phosphatase 73 U/L (40-110); Anion Gap 12 mmol/L (10-20); BUN (Urea Nitrogen) 26 mg/dL (8.9-20.6); Bilirubin, Total 0.2 mg/dL (0.2-1.2); Calc. Creatinine Clearance 235 mL/min (70-130); Calcium 8.4 mg/dL (7.8-10.44); Carbon Dioxide 33 mmol/L (22-29); Chloride 102 mmol/L (98-107); Estimated GFR 113; Globulin 3.8 g/dL (2.4-3.5); Glucose 186 mg/dL (70-105); Potassium 3.7 mmol/L (3.5-5.1); Protein, Total 5.9 g/dL (6.0-8.3); Sodium 143 mmol/L (136-145)
[2024-05-08 07:50] LABS: Actual Bicarbonate (HCO3a) 31.8 mEq/L (22-28); Base Excess (BEa) 6.4 mEq/L (-2.0 to +3.0); CO2 Tension 48.8 mmHg (35.0-45.0); Calcium, Ionized (arterial) 1.14 mmol/L (1.12-1.30); Carboxyhemoglobin (COHb) 0.6 gm% (0.0-3.0); Hematocrit-ABG 38 % (42.0-52.0); Hemoglobin (Hb) 12.9 g/dL (14.0-18.0); O2 Tension (PaO2), arterial 79.5 mmHg (80.0-100.0); pH, Arterial 7.432 (7.35-7.45)
[2024-05-08 07:51] LABS: Puncture Site Left Radial artery
[2024-05-08] MEDS: Dexmedetomidine In 0.9 % NaCl 100 ML IVPB SCH (10:42)
[2024-05-08] MEDS: Furosemide 40 MG (4 mL) VIAL SLOW IVP SCH (11:43)
[2024-05-09] MEDS: Metoclopramide HCl 10 MG (2 mL) VIAL IVP SCH (01:07)
[2024-05-09 04:31] LABS: #Basophils 0.03 10x3/uL (0.0-0.2); %Basophils 0.3 % (0.0-1.0); %Eosinophils 2.2 % (0.0-10.0); %Lymphocytes 9.2 % (21.0-51.0); %Monocytes 10.6 % (0.0-10.0); Hematocrit 40.9 % (42.0-52.0); Hemoglobin 12.5 g/dL (14.0-18.0); Mean Corpuscular HGB CONC 30.6 g/dL (32.0-36.0); Mean Corpuscular Hemoglobin 28.6 pg (27.0-31.0); Mean Corpuscular Volume 93.6 fL (78.0-98.0); Platelet Count 187 10x3/uL (130-400); RBC Distribution Width 14.4 % (11.5-14.5); Red Blood Cell (RBC) Count 4.37 mill/uL (4.70-6.10)
[2024-05-09] MEDS: Dextrose 5% in Water 1,000 ML IV SCH (05:00)
[2024-05-09 05:01] LABS: ALT (SGPT) 11 U/L (8-55); AST (SGOT) 19 U/L (5-34); Albumin 2.2 g/dL (3.5-5.0); Alkaline Phosphatase 77 U/L (40-110); Anion Gap 11 mmol/L (10-20); BUN (Urea Nitrogen) 14 mg/dL (8.9-20.6); Bilirubin, Total 0.2 mg/dL (0.2-1.2); Calc. Creatinine Clearance 250 mL/min (70-130); Calcium 8.6 mg/dL (7.8-10.44); Carbon Dioxide 35 mmol/L (22-29); Chloride 111 mmol/L (98-107); Estimated GFR 115; Globulin 4.5 g/dL (2.4-3.5); Glucose 180 mg/dL (70-105); Potassium 4.4 mmol/L (3.5-5.1); Protein, Total 6.7 g/dL (6.0-8.3); Sodium 153 mmol/L (136-145)
[2024-05-09 07:33] LABS: Actual Bicarbonate (HCO3a) 36.5 mEq/L (22-28); Base Excess (BEa) 9.2 mEq/L (-2.0 to +3.0); Calcium, Ionized (arterial) 1.19 mmol/L (1.12-1.30); Carboxyhemoglobin (COHb) 0.9 gm% (0.0-3.0); Hematocrit-ABG 42 % (42.0-52.0); Hemoglobin (Hb) 14.3 g/dL (14.0-18.0); O2 Tension (PaO2), arterial 63.4 mmHg (80.0-100.0); Potassium - ABG Lab 4.04 mmol/L (3.70-5.30); pH, Arterial 7.394 (7.35-7.45)
[2024-05-09 07:35] LABS: ALV-art Gradient -68.475 mmHg (0-20); Puncture Site Left Radial artery
[2024-05-09] MEDS: Senokot S 8.6-50 MG TAB PER TUBE SCH (09:26)
[2024-05-09] MEDS: methylPREDNISolone Sod Succ 40 MG VIAL IVP SCH (09:31)
[2024-05-09 10:07] LABS: Anion Gap 11 mmol/L (10-20); BUN (Urea Nitrogen) 15 mg/dL (8.9-20.6); Calc. Creatinine Clearance 237 mL/min (70-130); Calcium 8.7 mg/dL (7.8-10.44); Carbon Dioxide 36 mmol/L (22-29); Chloride 109 mmol/L (98-107); Estimated GFR 114; Glucose 254 mg/dL (70-105); Potassium 4.1 mmol/L (3.5-5.1); Sodium 152 mmol/L (136-145)
[2024-05-09] MEDS: Insulin Glargine 30 UNITS/0.3 ML VIAL SC SCH (12:50)
[2024-05-09] MEDS: Dexmedetomidine 1,000 MCG in Sodium Chloride 0.9% 250 ML 240 ML IVPB SCH (13:51)
[2024-05-10 05:24] LABS: #Basophils Less than 0.03 10x3/uL (0.0-0.2); %Basophils 0.1 % (0.0-1.0); %Eosinophils 1.1 % (0.0-10.0); %Lymphocytes 11.1 % (21.0-51.0); %Monocytes 11.3 % (0.0-10.0); %Neutrophils 75.9 % (42.0-75.0); Hemoglobin 12.5 g/dL (14.0-18.0); Mean Corpuscular HGB CONC 29.1 g/dL (32.0-36.0); Mean Corpuscular Hemoglobin 27.9 pg (27.0-31.0); Platelet Count 180 10x3/uL (130-400); RBC Distribution Width 14.3 % (11.5-14.5); Red Blood Cell (RBC) Count 4.48 mill/uL (4.70-6.10)
[2024-05-10 06:17] LABS: ALT (SGPT) 11 U/L (8-55); AST (SGOT) 12 U/L (5-34); Albumin 2.1 g/dL (3.5-5.0); Alkaline Phosphatase 102 U/L (40-110); Anion Gap 11 mmol/L (10-20); BUN (Urea Nitrogen) 11 mg/dL (8.9-20.6); Bilirubin, Total 0.3 mg/dL (0.2-1.2); Calc. Creatinine Clearance 0 mL/min (70-130); Calcium 9.1 mg/dL (7.8-10.44); Carbon Dioxide 37 mmol/L (22-29); Chloride 111 mmol/L (98-107); Estimated GFR 118; Globulin 4.3 g/dL (2.4-3.5); Glucose 188 mg/dL (70-105); Potassium 3.8 mmol/L (3.5-5.1); Protein, Total 6.4 g/dL (6.0-8.3); Sodium 155 mmol/L (136-145)
[2024-05-10 07:39] LABS: Actual Bicarbonate (HCO3a) 33.8 mEq/L (22-28); CO2 Tension 57.2 mmHg (35.0-45.0); Calcium, Ionized (arterial) 1.17 mmol/L (1.12-1.30); Hematocrit-ABG 43 % (42.0-52.0); Hemoglobin (Hb) 14.5 g/dL (14.0-18.0); O2 Tension (PaO2), arterial 60.2 mmHg (80.0-100.0); Puncture Site Right Radial artery
[2024-05-10] MEDS: Dextrose 5% in Water 500 ML IV SCH (11:50)
[2024-05-10 13:21] LABS: RBC Count-Automated (BF) 6388 /cu.mm; WBC/Nucleated-Auto (BF) 68 /cu.mm
[2024-05-10 13:22] LABS: BF Color Yellow; Body Fluid Source Thoracentesis Fluid; Clarity Hazy (Clear); Tube # 1
[2024-05-10 13:28] LABS: Pleural Fluid, Protein 1.8 g/dL
[2024-05-10 13:39] LABS: BF Segmented Neutrophils 23 %; Cell Count Non Hematic 14 %; Lymphocytes 63 %
[2024-05-10] MEDS: Insulin Glargine 30 UNITS/0.3 ML VIAL SC SCH (14:08)
[2024-05-10] MEDS: Atropine Sulfate 1 mg/10 ml Syringe ONE (15:30)
[2024-05-10 15:51] LABS: Fluid, pH - Pleural Fld Greater than 7.500 (7.60 - 7.66)
[2024-05-10 18:19] LABS: Anion Gap 11 mmol/L (10-20); BUN (Urea Nitrogen) 11 mg/dL (8.9-20.6); Calc. Creatinine Clearance 0 mL/min (70-130); Calcium 8.6 mg/dL (7.8-10.44); Carbon Dioxide 32 mmol/L (22-29); Chloride 107 mmol/L (98-107); Estimated GFR 117; Glucose 250 mg/dL (70-105); Potassium 4.2 mmol/L (3.5-5.1); Sodium 146 mmol/L (136-145)
[2024-05-11 06:43] LABS: ALT (SGPT) 11 U/L (8-55); AST (SGOT) 14 U/L (5-34); Alkaline Phosphatase 86 U/L (40-110); Anion Gap 13 mmol/L (10-20); BUN (Urea Nitrogen) 10 mg/dL (8.9-20.6); Bilirubin, Total 0.4 mg/dL (0.2-1.2); Calc. Creatinine Clearance 247 mL/min (70-130); Calcium 8.7 mg/dL (7.8-10.44); Carbon Dioxide 32 mmol/L (22-29); Chloride 105 mmol/L (98-107); Estimated GFR 116; Globulin 4.5 g/dL (2.4-3.5); Glucose 194 mg/dL (70-105); Potassium 3.9 mmol/L (3.5-5.1); Protein, Total 6.5 g/dL (6.0-8.3); Sodium 146 mmol/L (136-145)
[2024-05-11 07:31] LABS: #Basophils Less than 0.03 10x3/uL (0.0-0.2); %Basophils 0.1 % (0.0-1.0); %Eosinophils 1.8 % (0.0-10.0); %Lymphocytes 12.6 % (21.0-51.0); %Monocytes 14.9 % (0.0-10.0); %Neutrophils 69.9 % (42.0-75.0); Hematocrit 42.9 % (42.0-52.0); Hemoglobin 13.1 g/dL (14.0-18.0); Mean Corpuscular HGB CONC 30.5 g/dL (32.0-36.0); Mean Corpuscular Hemoglobin 27.8 pg (27.0-31.0); Mean Corpuscular Volume 91.2 fL (78.0-98.0); Mean Platelet Volume 12.8 fL (7.4-10.4); Platelet Count 199 10x3/uL (130-400); RBC Distribution Width 14.1 % (11.5-14.5); Red Blood Cell (RBC) Count 4.64 mill/uL (4.70-6.10)
[2024-05-11 07:41] LABS: ALV-art Gradient 161.525 mmHg (0-20); Actual Bicarbonate (HCO3a) 33.5 mEq/L (22-28); Base Excess (BEa) 8.6 mEq/L (-2.0 to +3.0); CO2 Tension 47.5 mmHg (35.0-45.0); Calcium, Ionized (arterial) 1.12 mmol/L (1.12-1.30); Carboxyhemoglobin (COHb) 1.2 gm% (0.0-3.0); Hematocrit-ABG 37 % (42.0-52.0); Hemoglobin (Hb) 12.5 g/dL (14.0-18.0); O2 Tension (PaO2), arterial 64.3 mmHg (80.0-100.0); Potassium - ABG Lab 3.49 mmol/L (3.70-5.30); Puncture Site Left Radial artery; pH, Arterial 7.466 (7.35-7.45)
[2024-05-12 04:35] LABS: #Basophils Less than 0.03 10x3/uL (0.0-0.2); %Basophils 0.1 % (0.0-1.0); %Eosinophils 2.8 % (0.0-10.0); %Lymphocytes 9.9 % (21.0-51.0); %Monocytes 13.2 % (0.0-10.0); %Neutrophils 72.8 % (42.0-75.0); Hematocrit 39.5 % (42.0-52.0); Hemoglobin 12.1 g/dL (14.0-18.0); Mean Corpuscular HGB CONC 30.6 g/dL (32.0-36.0); Mean Corpuscular Hemoglobin 27.9 pg (27.0-31.0); Mean Corpuscular Volume 91.2 fL (78.0-98.0); Mean Platelet Volume 12.4 fL (7.4-10.4); Platelet Count 193 10x3/uL (130-400); RBC Distribution Width 13.8 % (11.5-14.5); Red Blood Cell (RBC) Count 4.33 mill/uL (4.70-6.10)
[2024-05-12 05:09] LABS: ALT (SGPT) 11 U/L (8-55); AST (SGOT) 8 U/L (5-34); Albumin 1.8 g/dL (3.5-5.0); Alkaline Phosphatase 80 U/L (40-110); Anion Gap 10 mmol/L (10-20); BUN (Urea Nitrogen) 6 mg/dL (8.9-20.6); Bilirubin, Total 0.4 mg/dL (0.2-1.2); Calc. Creatinine Clearance 274 mL/min (70-130); Calcium 8.6 mg/dL (7.8-10.44); Carbon Dioxide 34 mmol/L (22-29); Chloride 105 mmol/L (98-107); Estimated GFR 119; Globulin 4.4 g/dL (2.4-3.5); Glucose 203 mg/dL (70-105); Potassium 3.5 mmol/L (3.5-5.1); Protein, Total 6.2 g/dL (6.0-8.3); Sodium 145 mmol/L (136-145)
[2024-05-12] MEDS: Potassium Chloride 20 MEQ in Premix 1 BAG IVPB SCH (08:15)
[2024-05-12] MEDS: Acetaminophen 325 MG TAB PER TUBE SCH (11:37)
[2024-05-12] MEDS: Acetaminophen 325 MG (10.15 ML) UDCUP PER TUBE PRN (18:10)
[2024-05-12] MEDS: Polyethylene Glycol 3350 17 GM Packet PER TUBE PRN (20:29)
[2024-05-13 05:13] LABS: #Basophils Less than 0.03 10x3/uL (0.0-0.2); %Basophils 0.1 % (0.0-1.0); %Eosinophils 2.3 % (0.0-10.0); %Lymphocytes 8.4 % (21.0-51.0); %Monocytes 9.4 % (0.0-10.0); %Neutrophils 79.1 % (42.0-75.0); Hematocrit 37.8 % (42.0-52.0); Hemoglobin 11.4 g/dL (14.0-18.0); Mean Corpuscular HGB CONC 30.2 g/dL (32.0-36.0); Mean Corpuscular Hemoglobin 27.6 pg (27.0-31.0); Mean Corpuscular Volume 91.5 fL (78.0-98.0); Mean Platelet Volume 12.2 fL (7.4-10.4); Platelet Count 186 10x3/uL (130-400); RBC Distribution Width 13.8 % (11.5-14.5); Red Blood Cell (RBC) Count 4.13 mill/uL (4.70-6.10)
[2024-05-13 05:32] LABS: ALT (SGPT) 15 U/L (8-55); AST (SGOT) 11 U/L (5-34); Albumin 1.7 g/dL (3.5-5.0); Alkaline Phosphatase 88 U/L (40-110); Anion Gap 12 mmol/L (10-20); BUN (Urea Nitrogen) 7 mg/dL (8.9-20.6); Bilirubin, Total 0.3 mg/dL (0.2-1.2); Calc. Creatinine Clearance 242 mL/min (70-130); Calcium 8.5 mg/dL (7.8-10.44); Carbon Dioxide 32 mmol/L (22-29); Chloride 104 mmol/L (98-107); Estimated GFR 114; Globulin 4.4 g/dL (2.4-3.5); Glucose 276 mg/dL (70-105); Potassium 3.6 mmol/L (3.5-5.1); Protein, Total 6.1 g/dL (6.0-8.3); Sodium 144 mmol/L (136-145)
[2024-05-13 08:20] LABS: Actual Bicarbonate (HCO3a) 34.4 mEq/L (22-28); Base Excess (BEa) 7.3 mEq/L (-2.0 to +3.0); CO2 Tension 59.2 mmHg (35.0-45.0); Calcium, Ionized (arterial) 1.17 mmol/L (1.12-1.30); Carboxyhemoglobin (COHb) 1.5 gm% (0.0-3.0); Hematocrit-ABG 41 % (42.0-52.0); Hemoglobin (Hb) 13.9 g/dL (14.0-18.0); Potassium - ABG Lab 3.53 mmol/L (3.70-5.30); Puncture Site Right Radial artery; pH, Arterial 7.382 (7.35-7.45)
[2024-05-13] MEDS: Atorvastatin Calcium 20 MG TAB PER TUBE SCH (08:38)
[2024-05-13] MEDS: Sodium Chloride 0.9% 1,000 ML IV SCH (09:49)
[2024-05-13] MEDS ORDERED: cefTRIAXone\\ROCEPHIN 2 GM in Sodium Chloride 0.9% 100 ML IVPB SCH (10:00)
[2024-05-13] MEDS ORDERED: NOREPINEPHRINE 8 MG/250 ML-D5W 250 ML IVPB SCH (11:00)
[2024-05-13] MEDS: Furosemide 40 MG (4 mL) VIAL SLOW IVP SCH (11:05)
[2024-05-13] MEDS: CEFAZOLIN 2 GM in Sodium Chloride 0.9% 100 ML IVPB SCH (11:29)
[2024-05-13] MEDS: Polyethylene Glycol 3350 17 GM Packet PER TUBE SCH ×2 (11:34→20:53)
[2024-05-14 05:40] LABS: ALT (SGPT) 21 U/L (8-55); AST (SGOT) 14 U/L (5-34); Albumin 1.7 g/dL (3.5-5.0); Alkaline Phosphatase 100 U/L (40-110); Anion Gap 9 mmol/L (10-20); BUN (Urea Nitrogen) 9 mg/dL (8.9-20.6); Bilirubin, Total 0.2 mg/dL (0.2-1.2); Calc. Creatinine Clearance 256 mL/min (70-130); Calcium 8.4 mg/dL (7.8-10.44); Carbon Dioxide 35 mmol/L (22-29); Chloride 105 mmol/L (98-107); Estimated GFR 116; Globulin 4.6 g/dL (2.4-3.5); Glucose 268 mg/dL (70-105); Potassium 3.2 mmol/L (3.5-5.1); Protein, Total 6.3 g/dL (6.0-8.3); Sodium 146 mmol/L (136-145)
[2024-05-14 05:43] LABS: #Basophils Less than 0.03 10x3/uL (0.0-0.2); %Basophils 0.2 % (0.0-1.0); %Lymphocytes 10.9 % (21.0-51.0); %Monocytes 9.6 % (0.0-10.0); %Neutrophils 77.1 % (42.0-75.0); Hematocrit 37.7 % (42.0-52.0); Hemoglobin 11.3 g/dL (14.0-18.0); Mean Corpuscular Hemoglobin 27.6 pg (27.0-31.0); Mean Corpuscular Volume 92.2 fL (78.0-98.0); Mean Platelet Volume 12.9 fL (7.4-10.4); Platelet Count 187 10x3/uL (130-400); RBC Distribution Width 14.1 % (11.5-14.5); Red Blood Cell (RBC) Count 4.09 mill/uL (4.70-6.10)
[2024-05-14] MEDS: Atropine Sulfate 1 mg/10 ml Syringe IVP SCH (06:01)
[2024-05-14] MEDS: Potassium Chloride 20 MEQ in Premix 1 BAG IVPB SCH ×2 (06:28→06:34)
[2024-05-14] MEDS ORDERED: Atropine Sulfate 1 mg/1 ml Vial ONE (06:30)
[2024-05-14 08:13] LABS: Magnesium 2.1 mg/dL (1.6-2.6)
[2024-05-14 10:08] LABS: CO2 Tension 61.1 mmHg (35.0-45.0)
[2024-05-14] MEDS: Metoclopramide HCl 10 MG (2 mL) VIAL IVP SCH (10:37)
[2024-05-14] MEDS: Insulin NPH Human Isophane 100 UNITS/ML (10 ML VIAL) SC SCH (10:53)
[2024-05-14] MEDS: Albumin 25% 25 GM (100 mL) BOT IVPB SCH (15:59)
[2024-05-14 16:55] LABS: Potassium 3.3 mmol/L (3.5-5.1)
[2024-05-14] MEDS: Potassium Chloride 40 MEQ in Premix 1 BAG IVPB SCH (23:07)
[2024-05-15] MEDS: QUEtiapine 25 MG TAB PER TUBE SCH (06:06)
[2024-05-15 06:20] LABS: ALT (SGPT) 26 U/L (8-55); AST (SGOT) 18 U/L (5-34); Albumin 2.1 g/dL (3.5-5.0); Alkaline Phosphatase 99 U/L (40-110); Anion Gap 11 mmol/L (10-20); BUN (Urea Nitrogen) 8 mg/dL (8.9-20.6); Bilirubin, Total 0.3 mg/dL (0.2-1.2); Calc. Creatinine Clearance 286 mL/min (70-130); Calcium 8.7 mg/dL (7.8-10.44); Carbon Dioxide 35 mmol/L (22-29); Chloride 106 mmol/L (98-107); Estimated GFR 120; Globulin 4.5 g/dL (2.4-3.5); Glucose 192 mg/dL (70-105); Potassium 3.2 mmol/L (3.5-5.1); Protein, Total 6.6 g/dL (6.0-8.3); Sodium 149 mmol/L (136-145)
[2024-05-15 06:25] LABS: #Basophils Less than 0.03 10x3/uL (0.0-0.2); %Basophils 0.1 % (0.0-1.0); %Lymphocytes 6.3 % (21.0-51.0); %Monocytes 8.5 % (0.0-10.0); %Neutrophils 83.8 % (42.0-75.0); Hematocrit 40.6 % (42.0-52.0); Hemoglobin 11.7 g/dL (14.0-18.0); Mean Corpuscular HGB CONC 28.8 g/dL (32.0-36.0); Mean Corpuscular Hemoglobin 28.1 pg (27.0-31.0); Mean Corpuscular Volume 97.6 fL (78.0-98.0); Mean Platelet Volume 12.3 fL (7.4-10.4); Platelet Count 205 10x3/uL (130-400); RBC Distribution Width 14.2 % (11.5-14.5); Red Blood Cell (RBC) Count 4.16 mill/uL (4.70-6.10)
[2024-05-15] MEDS: Potassium Chloride 20 MEQ in Premix 1 BAG IVPB SCH (09:52)
[2024-05-15] MEDS: Furosemide 40 MG (4 mL) VIAL SLOW IVP SCH (09:57)
[2024-05-15] MEDS: Lisinopril 10 MG TAB PO SCH (09:58)
[2024-05-15] MEDS ORDERED: Glycerin Adult Supp. (12 ct jar) PR PRN (10:44)
[2024-05-15] MEDS: Midazolam HCl 100 MG in Admixture Fee 1 EACH IVPB PRN (11:04)
[2024-05-15] MEDS: Albumin 25% 25 GM (100 mL) BOT IVPB SCH (11:54)
[2024-05-15] MEDS: Glycerin Adult Supp. (12 ct jar) PR SCH (11:55)
[2024-05-15] MEDS: Dextrose 5% in Water 1,000 ML IV SCH (12:10)
[2024-05-15 14:34] LABS: Anion Gap 13 mmol/L (10-20); BUN (Urea Nitrogen) 10 mg/dL (8.9-20.6); Calc. Creatinine Clearance 229 mL/min (70-130); Calcium 8.9 mg/dL (7.8-10.44); Carbon Dioxide 35 mmol/L (22-29); Chloride 103 mmol/L (98-107); Estimated GFR 112; Glucose 296 mg/dL (70-105); Potassium 3.7 mmol/L (3.5-5.1); Sodium 147 mmol/L (136-145)
[2024-05-16 04:48] LABS: #Basophils Less than 0.03 10x3/uL (0.0-0.2); %Basophils 0.1 % (0.0-1.0); %Eosinophils 0.9 % (0.0-10.0); %Lymphocytes 9.6 % (21.0-51.0); %Neutrophils 79.2 % (42.0-75.0); ALT (SGPT) 23 U/L (8-55); AST (SGOT) 13 U/L (5-34); Albumin 2.2 g/dL (3.5-5.0); Alkaline Phosphatase 90 U/L (40-110); Anion Gap 10 mmol/L (10-20); BUN (Urea Nitrogen) 12 mg/dL (8.9-20.6); Bilirubin, Total 0.2 mg/dL (0.2-1.2); Calc. Creatinine Clearance 270 mL/min (70-130); Calcium 8.8 mg/dL (7.8-10.44); Carbon Dioxide 38 mmol/L (22-29); Chloride 107 mmol/L (98-107); Estimated GFR 118; Globulin 4.2 g/dL (2.4-3.5); Glucose 213 mg/dL (70-105); Hematocrit 39.9 % (42.0-52.0); Hemoglobin 11.3 g/dL (14.0-18.0); Mean Corpuscular HGB CONC 28.3 g/dL (32.0-36.0); Mean Corpuscular Hemoglobin 27.9 pg (27.0-31.0); Mean Corpuscular Volume 98.5 fL (78.0-98.0); Mean Platelet Volume 11.9 fL (7.4-10.4); Platelet Count 176 10x3/uL (130-400); Potassium 3.3 mmol/L (3.5-5.1); Protein, Total 6.4 g/dL (6.0-8.3); RBC Distribution Width 14.1 % (11.5-14.5); Red Blood Cell (RBC) Count 4.05 mill/uL (4.70-6.10); Sodium 152 mmol/L (136-145)
[2024-05-16] MEDS: Potassium Chloride 20 MEQ in Premix 1 BAG IVPB SCH (06:09)
[2024-05-16 06:56] LABS: Actual Bicarbonate (HCO3a) 35.9 mEq/L (22-28); Base Excess (BEa) 8.7 mEq/L (-2.0 to +3.0); Calcium, Ionized (arterial) 1.16 mmol/L (1.12-1.30); Carboxyhemoglobin (COHb) 1.2 gm% (0.0-3.0); Hematocrit-ABG 37 % (42.0-52.0); Hemoglobin (Hb) 12.5 g/dL (14.0-18.0); O2 Tension (PaO2), arterial 60.7 mmHg (80.0-100.0); Potassium - ABG Lab 3.47 mmol/L (3.70-5.30)
[2024-05-16 07:11] LABS: ALV-art Gradient 146.875 mmHg (0-20); Puncture Site Right Radial artery
[2024-05-16] MEDS: Dextrose 5% in Water 1,000 ML IV SCH (09:01)
[2024-05-16] MEDS ORDERED: Fentanyl 250 MCG/5 ML VIAL ONE (09:56)
[2024-05-16] MEDS ORDERED: Bupivacaine 0.25% HCL 30 ML VIAL ONE (10:32)
[2024-05-16] MEDS ORDERED: EPINEPHrine 1 MG/ML VIAL ONE (10:32)
[2024-05-16] MEDS ORDERED: HYDROmorphone 2 MG/ML VIAL ONE (11:23)
[2024-05-16] MEDS ORDERED: Midazolam HCl 2 mg/2 ml Vial ONE (11:28)
[2024-05-16 12:49] LABS: Potassium 3.8 mmol/L (3.5-5.1)
[2024-05-16] MEDS ORDERED: PHENYLEPHRINE-NS 100 MCG/ML 10 ML SYRINGE ONE (15:03)
[2024-05-16 22:02] LABS: Anion Gap 12 mmol/L (10-20); BUN (Urea Nitrogen) 9 mg/dL (8.9-20.6); Calc. Creatinine Clearance 281 mL/min (70-130); Calcium 8.4 mg/dL (7.8-10.44); Carbon Dioxide 37 mmol/L (22-29); Chloride 104 mmol/L (98-107); Estimated GFR 120; Glucose 252 mg/dL (70-105); Potassium 3.3 mmol/L (3.5-5.1); Sodium 150 mmol/L (136-145)
[2024-05-16] MEDS: Potassium Chloride 40 MEQ in Premix 1 BAG IVPB SCH (23:20)
[2024-05-17 04:14] LABS: #Basophils Less than 0.03 10x3/uL (0.0-0.2); %Basophils 0.1 % (0.0-1.0); %Eosinophils 2.7 % (0.0-10.0); %Lymphocytes 10.9 % (21.0-51.0); %Monocytes 9.3 % (0.0-10.0); %Neutrophils 76.7 % (42.0-75.0); Hematocrit 38.1 % (42.0-52.0); Hemoglobin 10.9 g/dL (14.0-18.0); Mean Corpuscular HGB CONC 28.6 g/dL (32.0-36.0); Mean Corpuscular Volume 97.9 fL (78.0-98.0); Mean Platelet Volume 11.8 fL (7.4-10.4); Platelet Count 180 10x3/uL (130-400); Red Blood Cell (RBC) Count 3.89 mill/uL (4.70-6.10)
[2024-05-17 04:24] LABS: ALT (SGPT) 15 U/L (8-55); AST (SGOT) 10 U/L (5-34); Albumin 2.1 g/dL (3.5-5.0); Alkaline Phosphatase 84 U/L (40-110); Anion Gap 10 mmol/L (10-20); BUN (Urea Nitrogen) 7 mg/dL (8.9-20.6); Bilirubin, Total 0.3 mg/dL (0.2-1.2); Calc. Creatinine Clearance 290 mL/min (70-130); Calcium 8.4 mg/dL (7.8-10.44); Carbon Dioxide 39 mmol/L (22-29); Chloride 103 mmol/L (98-107); Estimated GFR 121; Glucose 224 mg/dL (70-105); Potassium 3.4 mmol/L (3.5-5.1); Protein, Total 6.1 g/dL (6.0-8.3); Sodium 149 mmol/L (136-145)
[2024-05-17] MEDS ORDERED: Potassium Chloride 20 MEQ in Premix 1 BAG IVPB SCH (06:00)
[2024-05-17] MEDS: Potassium Chloride 40 MEQ in Premix 1 BAG IVPB SCH (06:17)
[2024-05-17] MEDS: Fondaparinux Sodium 2.5 MG/0.5 ML SYRINGE SC SCH (09:12)
[2024-05-17] MEDS: Insulin Glargine 30 UNITS/0.3 ML VIAL SC SCH (10:24)
[2024-05-17 11:30] LABS: Potassium 3.8 mmol/L (3.5-5.1)
[2024-05-17 13:50] LABS: Potassium 3.8 mmol/L (3.5-5.1); Sodium 153 mmol/L (136-145)
[2024-05-18 04:45] LABS: #Basophils Less than 0.03 10x3/uL (0.0-0.2); %Basophils 0.1 % (0.0-1.0); %Eosinophils 2.5 % (0.0-10.0); %Lymphocytes 14.5 % (21.0-51.0); %Monocytes 10.2 % (0.0-10.0); %Neutrophils 72.3 % (42.0-75.0); Hematocrit 38.4 % (42.0-52.0); Hemoglobin 10.9 g/dL (14.0-18.0); Mean Corpuscular HGB CONC 28.4 g/dL (32.0-36.0); Mean Corpuscular Volume 98.7 fL (78.0-98.0); Mean Platelet Volume 12.3 fL (7.4-10.4); Platelet Count 185 10x3/uL (130-400); RBC Distribution Width 14.1 % (11.5-14.5); Red Blood Cell (RBC) Count 3.89 mill/uL (4.70-6.10)
[2024-05-18 05:04] LABS: ALT (SGPT) 17 U/L (8-55); AST (SGOT) 13 U/L (5-34); Albumin 2.1 g/dL (3.5-5.0); Alkaline Phosphatase 84 U/L (40-110); Anion Gap 9 mmol/L (10-20); BUN (Urea Nitrogen) 11 mg/dL (8.9-20.6); Bilirubin, Total 0.3 mg/dL (0.2-1.2); Calc. Creatinine Clearance 297 mL/min (70-130); Calcium 8.7 mg/dL (7.8-10.44); Carbon Dioxide 38 mmol/L (22-29); Chloride 107 mmol/L (98-107); Estimated GFR 121; Globulin 4.1 g/dL (2.4-3.5); Glucose 179 mg/dL (70-105); Potassium 3.3 mmol/L (3.5-5.1); Protein, Total 6.2 g/dL (6.0-8.3); Sodium 151 mmol/L (136-145)
[2024-05-18 07:15] LABS: Actual Bicarbonate (HCO3a) 40.5 mEq/L (22-28); Base Excess (BEa) 12.4 mEq/L (-2.0 to +3.0); Calcium, Ionized (arterial) 1.16 mmol/L (1.12-1.30); Carboxyhemoglobin (COHb) 1.4 gm% (0.0-3.0); Hematocrit-ABG 46 % (42.0-52.0); Hemoglobin (Hb) 15.5 g/dL (14.0-18.0); O2 Tension (PaO2), arterial 66.7 mmHg (80.0-100.0); Potassium - ABG Lab 3.32 mmol/L (3.70-5.30); pH, Arterial 7.405 (7.35-7.45)
[2024-05-18 07:17] LABS: ALV-art Gradient 135.875 mmHg (0-20); Puncture Site Right Brachial art
[2024-05-18] MEDS: Potassium Chloride 20 MEQ in Premix 1 BAG IVPB SCH (07:47)
[2024-05-18] MEDS: Desmopressin Acetate 4 mcg/ml AMPUL IVP SCH (08:41)
[2024-05-18] MEDS: Lisinopril 10 MG TAB PER TUBE SCH (08:43)
[2024-05-18] MEDS: metFORMIN 500 MG TAB PER TUBE SCH ×2 (08:43→17:25)
[2024-05-18] MEDS: Potassium Chloride 20 MEQ TAB PER TUBE SCH (08:43)
[2024-05-18] MEDS: Lorazepam 1 MG TAB PER TUBE SCH (12:47)
[2024-05-18 14:46] LABS: Potassium 3.9 mmol/L (3.5-5.1)
[2024-05-19] MEDS: Labetalol HCl 100 MG/20 ML VIAL SLOW IVP PRN (04:26)
[2024-05-19] MEDS: Morphine 2 MG/ML VIAL SLOW IVP PRN (04:49)
[2024-05-19 04:56] LABS: #Basophils Less than 0.03 10x3/uL (0.0-0.2); %Basophils 0.1 % (0.0-1.0); %Eosinophils 1.2 % (0.0-10.0); %Lymphocytes 7.4 % (21.0-51.0); %Neutrophils 85.8 % (42.0-75.0); Hematocrit 41.3 % (42.0-52.0); Hemoglobin 11.9 g/dL (14.0-18.0); Mean Corpuscular HGB CONC 28.8 g/dL (32.0-36.0); Mean Corpuscular Volume 97.2 fL (78.0-98.0); Mean Platelet Volume 12.6 fL (7.4-10.4); Platelet Count 201 10x3/uL (130-400); RBC Distribution Width 14.1 % (11.5-14.5); Red Blood Cell (RBC) Count 4.25 mill/uL (4.70-6.10)
[2024-05-19] MEDS: Lorazepam 2 MG/ML VIAL SLOW IVP SCH (05:05)
[2024-05-19] MEDS: Labetalol HCl 100 MG/20 ML VIAL SLOW IVP SCH (05:07)
[2024-05-19 05:13] LABS: ALT (SGPT) 20 U/L (8-55); AST (SGOT) 16 U/L (5-34); Albumin 2.3 g/dL (3.5-5.0); Alkaline Phosphatase 95 U/L (40-110); Anion Gap 11 mmol/L (10-20); BUN (Urea Nitrogen) 11 mg/dL (8.9-20.6); Bilirubin, Total 0.3 mg/dL (0.2-1.2); Calc. Creatinine Clearance 269 mL/min (70-130); Calcium 8.7 mg/dL (7.8-10.44); Carbon Dioxide 37 mmol/L (22-29); Chloride 103 mmol/L (98-107); Estimated GFR 119; Globulin 4.7 g/dL (2.4-3.5); Glucose 222 mg/dL (70-105); Potassium 3.3 mmol/L (3.5-5.1); Sodium 148 mmol/L (136-145)
[2024-05-19] MEDS: Midazolam HCl 2 mg/2 ml Vial SLOW IVP SCH (05:56)
[2024-05-19] MEDS: Potassium Chloride 20 MEQ in Premix 1 BAG IVPB SCH ×2 (06:14→13:50)
[2024-05-19] MEDS: Morphine 2 MG/ML VIAL SLOW IVP SCH (07:21)
[2024-05-19 07:30] LABS: Actual Bicarbonate (HCO3a) 36.6 mEq/L (22-28); Base Excess (BEa) 10.7 mEq/L (-2.0 to +3.0); CO2 Tension 53.7 mmHg (35.0-45.0); Calcium, Ionized (arterial) 1.12 mmol/L (1.12-1.30); Carboxyhemoglobin (COHb) 1.6 gm% (0.0-3.0); Hematocrit-ABG 40 % (42.0-52.0); Hemoglobin (Hb) 13.5 g/dL (14.0-18.0); O2 Tension (PaO2), arterial 60.8 mmHg (80.0-100.0); Potassium - ABG Lab 3.42 mmol/L (3.70-5.30); Puncture Site Right Radial artery; pH, Arterial 7.451 (7.35-7.45)
[2024-05-19 07:31] LABS: ALV-art Gradient 157.275 mmHg (0-20)
[2024-05-19] MEDS ORDERED: Polyethylene Glycol 3350 17 GM Packet PER TUBE PRN (08:51)
[2024-05-19] MEDS: fentaNYL 75 mcg/hour Patch TD SCH (09:50)
[2024-05-19] MEDS: Desmopressin Acetate 4 mcg/ml AMPUL IVP SCH (11:30)
[2024-05-19] MEDS: Albumin 25% 25 GM (100 mL) BOT IVPB SCH (12:29)
[2024-05-19 12:38] LABS: Potassium 3.5 mmol/L (3.5-5.1)
[2024-05-19 20:09] LABS: Potassium 3.5 mmol/L (3.5-5.1)
[2024-05-19] MEDS: Potassium Bicarbonate/Cit Ac 20 MEQ TAB PER TUBE SCH (21:40)
[2024-05-20 04:53] LABS: #Basophils Less than 0.03 10x3/uL (0.0-0.2); %Basophils 0.1 % (0.0-1.0); %Eosinophils 1.9 % (0.0-10.0); %Lymphocytes 9.5 % (21.0-51.0); %Monocytes 7.7 % (0.0-10.0); %Neutrophils 80.3 % (42.0-75.0); Hematocrit 34.1 % (42.0-52.0); Hemoglobin 9.8 g/dL (14.0-18.0); Mean Corpuscular HGB CONC 28.7 g/dL (32.0-36.0); Mean Corpuscular Hemoglobin 27.7 pg (27.0-31.0); Mean Corpuscular Volume 96.3 fL (78.0-98.0); Mean Platelet Volume 12.9 fL (7.4-10.4); Platelet Count 174 10x3/uL (130-400); RBC Distribution Width 14.2 % (11.5-14.5); Red Blood Cell (RBC) Count 3.54 mill/uL (4.70-6.10)
[2024-05-20 05:13] LABS: ALT (SGPT) 17 U/L (8-55); AST (SGOT) 14 U/L (5-34); Albumin 2.4 g/dL (3.5-5.0); Alkaline Phosphatase 79 U/L (40-110); Anion Gap 8 mmol/L (10-20); BUN (Urea Nitrogen) 13 mg/dL (8.9-20.6); Bilirubin, Total 0.3 mg/dL (0.2-1.2); Calc. Creatinine Clearance 284 mL/min (70-130); Calcium 8.6 mg/dL (7.8-10.44); Carbon Dioxide 38 mmol/L (22-29); Chloride 104 mmol/L (98-107); Estimated GFR 121; Globulin 3.7 g/dL (2.4-3.5); Glucose 235 mg/dL (70-105); Potassium 3.4 mmol/L (3.5-5.1); Protein, Total 6.1 g/dL (6.0-8.3); Sodium 147 mmol/L (136-145)
[2024-05-20] MEDS: Potassium Chloride 20 MEQ in Premix 1 BAG IVPB SCH (06:13)
[2024-05-20] MEDS: Desmopressin Acetate 4 mcg/ml AMPUL IVP SCH (09:30)
[2024-05-20 13:03] LABS: Potassium 3.6 mmol/L (3.5-5.1)
[2024-05-20 16:09] LABS: CO2 Tension 62.1 mmHg (35.0-45.0)
[2024-05-20 16:09] LABS: CO2 Tension 66.1 mmHg (35.0-45.0)
[2024-05-21 04:48] LABS: ALT (SGPT) 41 U/L (8-55); AST (SGOT) 31 U/L (5-34); Albumin 2.4 g/dL (3.5-5.0); Alkaline Phosphatase 88 U/L (40-110); Anion Gap 13 mmol/L (10-20); BUN (Urea Nitrogen) 17 mg/dL (8.9-20.6); Bilirubin, Total 0.3 mg/dL (0.2-1.2); Calc. Creatinine Clearance 293 mL/min (70-130); Calcium 8.9 mg/dL (7.8-10.44); Carbon Dioxide 33 mmol/L (22-29); Chloride 102 mmol/L (98-107); Estimated GFR 122; Glucose 201 mg/dL (70-105); Potassium 3.3 mmol/L (3.5-5.1); Protein, Total 6.4 g/dL (6.0-8.3); Sodium 145 mmol/L (136-145)
[2024-05-21 04:52] LABS: #Basophils Less than 0.03 10x3/uL (0.0-0.2); %Basophils 0.1 % (0.0-1.0); %Eosinophils 2.1 % (0.0-10.0); %Lymphocytes 10.5 % (21.0-51.0); %Neutrophils 77.9 % (42.0-75.0); Hematocrit 35.1 % (42.0-52.0); Hemoglobin 10.3 g/dL (14.0-18.0); Mean Corpuscular HGB CONC 29.3 g/dL (32.0-36.0); Mean Corpuscular Hemoglobin 27.8 pg (27.0-31.0); Mean Corpuscular Volume 94.9 fL (78.0-98.0); Mean Platelet Volume 13.5 fL (7.4-10.4); Platelet Count 178 10x3/uL (130-400); RBC Distribution Width 13.9 % (11.5-14.5)
[2024-05-21] MEDS: Potassium Chloride 20 MEQ in Premix 1 BAG IVPB SCH (06:27)
[2024-05-21] MEDS ORDERED: Senokot S 8.6-50 MG TAB PER TUBE PRN (10:16)
[2024-05-21] MEDS: Scopolamine 1 mg/72 hour Patch TOP SCH (11:38)
[2024-05-21] MEDS: Desmopressin Acetate 4 mcg/ml AMPUL IVP SCH (11:38)
[2024-05-21 13:54] LABS: Potassium 3.8 mmol/L (3.5-5.1)
[2024-05-22 04:34] LABS: #Basophils Less than 0.03 10x3/uL (0.0-0.2); %Basophils 0.1 % (0.0-1.0); %Lymphocytes 11.6 % (21.0-51.0); %Neutrophils 76.8 % (42.0-75.0); Hematocrit 35.9 % (42.0-52.0); Hemoglobin 10.7 g/dL (14.0-18.0); Mean Corpuscular HGB CONC 29.8 g/dL (32.0-36.0); Mean Corpuscular Hemoglobin 27.9 pg (27.0-31.0); Mean Corpuscular Volume 93.7 fL (78.0-98.0); Mean Platelet Volume 13.2 fL (7.4-10.4); Platelet Count 191 10x3/uL (130-400); RBC Distribution Width 13.7 % (11.5-14.5); Red Blood Cell (RBC) Count 3.83 mill/uL (4.70-6.10)
[2024-05-22 04:37] LABS: ALT (SGPT) 50 U/L (8-55); AST (SGOT) 21 U/L (5-34); Albumin 2.4 g/dL (3.5-5.0); Alkaline Phosphatase 90 U/L (40-110); Anion Gap 10 mmol/L (10-20); BUN (Urea Nitrogen) 14 mg/dL (8.9-20.6); Bilirubin, Total 0.3 mg/dL (0.2-1.2); Calc. Creatinine Clearance 315 mL/min (70-130); Calcium 8.7 mg/dL (7.8-10.44); Carbon Dioxide 36 mmol/L (22-29); Chloride 100 mmol/L (98-107); Estimated GFR 125; Globulin 4.2 g/dL (2.4-3.5); Glucose 192 mg/dL (70-105); Potassium 3.2 mmol/L (3.5-5.1); Protein, Total 6.6 g/dL (6.0-8.3); Sodium 143 mmol/L (136-145)
[2024-05-22] MEDS ORDERED: Potassium Chloride 20 MEQ in Premix 1 BAG IVPB SCH (08:00)
[2024-05-22] MEDS: Potassium Chloride 40 MEQ in Premix 1 BAG IVPB SCH (08:31)
[2024-05-22] MEDS: Lansoprazole 30 MG/10 ML UDCUP PER TUBE SCH (08:32)
[2024-05-22] MEDS: Desmopressin Acetate 4 mcg/ml AMPUL IVP SCH (08:33)
[2024-05-22] MEDS: predniSONE 20 MG TAB PER TUBE SCH (08:35)
[2024-05-22] MEDS: Dexmedetomidine In 0.9 % NaCl 100 ML IV SCH (13:18)
[2024-05-23 04:52] LABS: #Basophils Less than 0.03 10x3/uL (0.0-0.2); %Basophils 0.2 % (0.0-1.0); %Eosinophils 3.3 % (0.0-10.0); %Monocytes 9.7 % (0.0-10.0); %Neutrophils 74.3 % (42.0-75.0); Hematocrit 34.7 % (42.0-52.0); Hemoglobin 10.5 g/dL (14.0-18.0); Mean Corpuscular HGB CONC 30.3 g/dL (32.0-36.0); Mean Corpuscular Hemoglobin 27.5 pg (27.0-31.0); Mean Corpuscular Volume 90.8 fL (78.0-98.0); Mean Platelet Volume 13.4 fL (7.4-10.4); Platelet Count 184 10x3/uL (130-400); RBC Distribution Width 13.5 % (11.5-14.5); Red Blood Cell (RBC) Count 3.82 mill/uL (4.70-6.10)
[2024-05-23 04:57] LABS: Anion Gap 10 mmol/L (10-20); BUN (Urea Nitrogen) 12 mg/dL (8.9-20.6); Calc. Creatinine Clearance 302 mL/min (70-130); Calcium 8.7 mg/dL (7.8-10.44); Carbon Dioxide 37 mmol/L (22-29); Chloride 97 mmol/L (98-107); Estimated GFR 124; Glucose 192 mg/dL (70-105); Potassium 3.4 mmol/L (3.5-5.1); Sodium 141 mmol/L (136-145)
[2024-05-23] MEDS: Potassium Chloride 20 MEQ in Premix 1 BAG IVPB SCH (08:10)
[2024-05-23] MEDS: hydrALAZINE 20 MG/ML VIAL SLOW IVP PRN (12:13)
[2024-05-23] MEDS: Acetaminophen 650 MG/20.3 ML UDCUP PER TUBE PRN (22:25)
[2024-05-24 06:17] LABS: #Basophils Less than 0.03 10x3/uL (0.0-0.2); %Basophils 0.1 % (0.0-1.0); %Eosinophils 2.2 % (0.0-10.0); %Lymphocytes 13.1 % (21.0-51.0); %Monocytes 9.9 % (0.0-10.0); Hematocrit 39.1 % (42.0-52.0); Hemoglobin 11.8 g/dL (14.0-18.0); Mean Corpuscular HGB CONC 30.2 g/dL (32.0-36.0); Mean Corpuscular Hemoglobin 27.5 pg (27.0-31.0); Mean Corpuscular Volume 91.1 fL (78.0-98.0); Mean Platelet Volume 12.7 fL (7.4-10.4); Platelet Count 243 10x3/uL (130-400); RBC Distribution Width 13.8 % (11.5-14.5); Red Blood Cell (RBC) Count 4.29 mill/uL (4.70-6.10)
[2024-05-24] MEDS: Ondansetron PF 4 MG/2 ML Vial ONE (06:39)
[2024-05-24] MEDS: Ondansetron PF 4 MG/2 ML Vial IVP PRN (06:40)
[2024-05-24 06:50] LABS: Anion Gap 10 mmol/L (10-20); BUN (Urea Nitrogen) 8 mg/dL (8.9-20.6); Calc. Creatinine Clearance 302 mL/min (70-130); Calcium 8.5 mg/dL (7.8-10.44); Carbon Dioxide 35 mmol/L (22-29); Chloride 98 mmol/L (98-107); Estimated GFR 125; Glucose 207 mg/dL (70-105); Potassium 3.2 mmol/L (3.5-5.1); Sodium 140 mmol/L (136-145)
[2024-05-24] MEDS: fentaNYL 50 mcg/hour Patch TD SCH (08:20)
[2024-05-24] MEDS: Lisinopril 20 MG TAB PER TUBE SCH (08:51)
[2024-05-24] MEDS: Potassium Chloride 20 MEQ in Premix 1 BAG IVPB SCH (11:12)
[2024-05-25 03:54] LABS: #Basophils Less than 0.03 10x3/uL (0.0-0.2); %Basophils 0.1 % (0.0-1.0); %Eosinophils 2.6 % (0.0-10.0); %Lymphocytes 14.2 % (21.0-51.0); %Monocytes 10.9 % (0.0-10.0); %Neutrophils 71.6 % (42.0-75.0); Hematocrit 36.9 % (42.0-52.0); Mean Corpuscular HGB CONC 29.8 g/dL (32.0-36.0); Mean Corpuscular Hemoglobin 27.6 pg (27.0-31.0); Mean Corpuscular Volume 92.7 fL (78.0-98.0); Mean Platelet Volume 12.6 fL (7.4-10.4); Platelet Count 222 10x3/uL (130-400); RBC Distribution Width 13.6 % (11.5-14.5); Red Blood Cell (RBC) Count 3.98 mill/uL (4.70-6.10)
[2024-05-25 04:02] LABS: Hemoglobin A1c 9.6 % (4.0-6.0)
[2024-05-25 04:10] LABS: Anion Gap 9 mmol/L (10-20); BUN (Urea Nitrogen) 10 mg/dL (8.9-20.6); Calc. Creatinine Clearance 269 mL/min (70-130); Carbon Dioxide 35 mmol/L (22-29); Chloride 97 mmol/L (98-107); Potassium 3.3 mmol/L (3.5-5.1); Sodium 138 mmol/L (136-145)
[2024-05-25 04:11] LABS: Calcium 8.4 mg/dL (7.8-10.44); Estimated GFR 120; Glucose 221 mg/dL (70-105); Magnesium 2.2 mg/dL (1.6-2.6)
[2024-05-25] MEDS: Potassium Chloride 20 MEQ in Premix 1 BAG IVPB SCH (06:34)
[2024-05-25] MEDS: Amlodipine 5 MG TAB PO SCH (12:38)
[2024-05-26 06:12] LABS: #Basophils Less than 0.03 10x3/uL (0.0-0.2); %Basophils 0.2 % (0.0-1.0); %Eosinophils 2.8 % (0.0-10.0); %Lymphocytes 15.5 % (21.0-51.0); %Monocytes 11.2 % (0.0-10.0); %Neutrophils 69.4 % (42.0-75.0); Hematocrit 39.1 % (42.0-52.0); Mean Corpuscular HGB CONC 30.7 g/dL (32.0-36.0); Mean Corpuscular Hemoglobin 27.4 pg (27.0-31.0); Mean Corpuscular Volume 89.3 fL (78.0-98.0); Mean Platelet Volume 12.3 fL (7.4-10.4); Platelet Count 237 10x3/uL (130-400); RBC Distribution Width 13.5 % (11.5-14.5); Red Blood Cell (RBC) Count 4.38 mill/uL (4.70-6.10)
[2024-05-26 09:43] LABS: Anion Gap 12 mmol/L (10-20); BUN (Urea Nitrogen) 8 mg/dL (8.9-20.6); Calc. Creatinine Clearance 267 mL/min (70-130); Calcium 8.7 mg/dL (7.8-10.44); Carbon Dioxide 36 mmol/L (22-29); Chloride 97 mmol/L (98-107); Estimated GFR 121; Glucose 194 mg/dL (70-105); Potassium 3.3 mmol/L (3.5-5.1); Sodium 142 mmol/L (136-145)
[2024-05-26] MEDS: Potassium Bicarbonate/Cit Ac 20 MEQ TAB PER TUBE SCH (10:53)
[2024-05-26] MEDS: Amlodipine 5 MG TAB PO SCH (10:54)
[2024-05-27 05:40] LABS: #Basophils Less than 0.03 10x3/uL (0.0-0.2); %Basophils 0.3 % (0.0-1.0); %Lymphocytes 15.1 % (21.0-51.0); %Monocytes 13.5 % (0.0-10.0); %Neutrophils 67.3 % (42.0-75.0); Hematocrit 38.4 % (42.0-52.0); Hemoglobin 11.7 g/dL (14.0-18.0); Mean Corpuscular HGB CONC 30.5 g/dL (32.0-36.0); Mean Corpuscular Hemoglobin 27.6 pg (27.0-31.0); Mean Corpuscular Volume 90.6 fL (78.0-98.0); Mean Platelet Volume 11.9 fL (7.4-10.4); Platelet Count 229 10x3/uL (130-400); RBC Distribution Width 13.6 % (11.5-14.5); Red Blood Cell (RBC) Count 4.24 mill/uL (4.70-6.10)
[2024-05-27 10:07] LABS: Anion Gap 12 mmol/L (10-20); BUN (Urea Nitrogen) 6 mg/dL (8.9-20.6); Calc. Creatinine Clearance 260 mL/min (70-130); Calcium 8.7 mg/dL (7.8-10.44); Carbon Dioxide 37 mmol/L (22-29); Chloride 99 mmol/L (98-107); Estimated GFR 121; Glucose 221 mg/dL (70-105); Potassium 3.5 mmol/L (3.5-5.1); Sodium 144 mmol/L (136-145)
[2024-05-27] MEDS: fentaNYL 25 mcg Patch TD SCH (13:17)
[2024-05-27] MEDS: Potassium Bicarbonate/Cit Ac 20 MEQ TAB PER TUBE SCH (13:18)
[2024-05-28 05:27] LABS: #Basophils Less than 0.03 10x3/uL (0.0-0.2); %Basophils 0.1 % (0.0-1.0); %Eosinophils 2.7 % (0.0-10.0); %Lymphocytes 16.9 % (21.0-51.0); %Monocytes 11.7 % (0.0-10.0); %Neutrophils 68.2 % (42.0-75.0); Hematocrit 40.4 % (42.0-52.0); Hemoglobin 12.1 g/dL (14.0-18.0); Mean Corpuscular Hemoglobin 27.6 pg (27.0-31.0); Platelet Count 256 10x3/uL (130-400); RBC Distribution Width 13.5 % (11.5-14.5); Red Blood Cell (RBC) Count 4.39 mill/uL (4.70-6.10)
[2024-05-28] MEDS: Ipratropium/Albuterol 3 ML NEB NEB SCH (14:54)
[2024-05-29 03:47] LABS: #Basophils Less than 0.03 10x3/uL (0.0-0.2); %Basophils 0.1 % (0.0-1.0); %Eosinophils 1.8 % (0.0-10.0); %Lymphocytes 14.5 % (21.0-51.0); %Monocytes 9.2 % (0.0-10.0); %Neutrophils 74.1 % (42.0-75.0); Hematocrit 39.1 % (42.0-52.0); Hemoglobin 11.6 g/dL (14.0-18.0); Mean Corpuscular HGB CONC 29.7 g/dL (32.0-36.0); Mean Corpuscular Hemoglobin 27.4 pg (27.0-31.0); Mean Corpuscular Volume 92.2 fL (78.0-98.0); Mean Platelet Volume 11.7 fL (7.4-10.4); Platelet Count 260 10x3/uL (130-400); RBC Distribution Width 13.5 % (11.5-14.5); Red Blood Cell (RBC) Count 4.24 mill/uL (4.70-6.10)
[2024-05-29 04:33] LABS: Anion Gap 10 mmol/L (10-20); BUN (Urea Nitrogen) 13 mg/dL (8.9-20.6); Calc. Creatinine Clearance 260 mL/min (70-130); Calcium 8.9 mg/dL (7.8-10.44); Carbon Dioxide 36 mmol/L (22-29); Chloride 98 mmol/L (98-107); Estimated GFR 121; Glucose 128 mg/dL (70-105); Potassium 3.4 mmol/L (3.5-5.1); Sodium 141 mmol/L (136-145)
[2024-05-29] MEDS: Potassium Chloride 20 MEQ TAB PO SCH (09:10)
[2024-05-29] MEDS: Potassium Bicarbonate/Cit Ac 20 MEQ TAB PER TUBE SCH (09:54)
[2024-05-30] MEDS ORDERED: fentaNYL 25 mcg Patch TD SCH (12:30)
[2024-06-01] MEDS: Melatonin 3 MG TAB PO SCH (03:32)
[2024-06-01 06:07] LABS: #Basophils Less than 0.03 10x3/uL (0.0-0.2); %Basophils 0.2 % (0.0-1.0); %Eosinophils 1.8 % (0.0-10.0); %Lymphocytes 15.2 % (21.0-51.0); %Monocytes 10.3 % (0.0-10.0); %Neutrophils 72.2 % (42.0-75.0); Hematocrit 38.7 % (42.0-52.0); Mean Corpuscular Hemoglobin 27.6 pg (27.0-31.0); Mean Corpuscular Volume 89.2 fL (78.0-98.0); Mean Platelet Volume 11.7 fL (7.4-10.4); Platelet Count 242 10x3/uL (130-400); RBC Distribution Width 13.2 % (11.5-14.5); Red Blood Cell (RBC) Count 4.34 mill/uL (4.70-6.10)
[2024-06-01 06:24] LABS: Anion Gap 10 mmol/L (10-20); BUN (Urea Nitrogen) 8 mg/dL (8.9-20.6); Calc. Creatinine Clearance 252 mL/min (70-130); Calcium 8.6 mg/dL (7.8-10.44); Carbon Dioxide 34 mmol/L (22-29); Chloride 95 mmol/L (98-107); Estimated GFR 121; Glucose 126 mg/dL (70-105); Potassium 2.8 mmol/L (3.5-5.1); Sodium 136 mmol/L (136-145)
[2024-06-01] MEDS: Potassium Chloride 20 MEQ TAB PO SCH (09:26)
[2024-06-01] MEDS: Magnesium 2 GM/50 ML(in water) 2 GM in Premix 1 BAG IVPB SCH (09:27)
[2024-06-02 06:30] LABS: #Basophils Less than 0.03 10x3/uL (0.0-0.2); %Basophils 0.2 % (0.0-1.0); %Eosinophils 1.3 % (0.0-10.0); %Lymphocytes 13.2 % (21.0-51.0); %Monocytes 9.1 % (0.0-10.0); %Neutrophils 75.8 % (42.0-75.0); Hematocrit 45.2 % (42.0-52.0); Hemoglobin 13.5 g/dL (14.0-18.0); Mean Corpuscular HGB CONC 29.9 g/dL (32.0-36.0); Mean Corpuscular Hemoglobin 26.9 pg (27.0-31.0); Mean Platelet Volume 11.8 fL (7.4-10.4); Platelet Count 258 10x3/uL (130-400); RBC Distribution Width 13.6 % (11.5-14.5); Red Blood Cell (RBC) Count 5.02 mill/uL (4.70-6.10)
[2024-06-02 06:47] LABS: Anion Gap 12 mmol/L (10-20); BUN (Urea Nitrogen) 5 mg/dL (8.9-20.6); Calc. Creatinine Clearance 234 mL/min (70-130); Carbon Dioxide 34 mmol/L (22-29); Chloride 101 mmol/L (98-107); Estimated GFR 118; Glucose 148 mg/dL (70-105); Magnesium 2.2 mg/dL (1.6-2.6); Potassium 2.8 mmol/L (3.5-5.1); Sodium 144 mmol/L (136-145)
[2024-06-02] MEDS: Potassium Chloride 20 MEQ TAB PO SCH (10:01)
[2024-06-03] MEDS: traMADol HCl 50 MG TAB PER TUBE SCH (02:23)
[2024-06-03 09:43] LABS: #Basophils 0.03 10x3/uL (0.0-0.2); %Basophils 0.3 % (0.0-1.0); %Eosinophils 2.5 % (0.0-10.0); %Lymphocytes 17.4 % (21.0-51.0); %Monocytes 11.2 % (0.0-10.0); %Neutrophils 68.2 % (42.0-75.0); Hematocrit 39.3 % (42.0-52.0); Hemoglobin 12.2 g/dL (14.0-18.0); Mean Corpuscular Hemoglobin 27.9 pg (27.0-31.0); Mean Corpuscular Volume 89.7 fL (78.0-98.0); Mean Platelet Volume 11.9 fL (7.4-10.4); Platelet Count 196 10x3/uL (130-400); RBC Distribution Width 13.6 % (11.5-14.5); Red Blood Cell (RBC) Count 4.38 mill/uL (4.70-6.10)
[2024-06-03 10:02] LABS: Anion Gap 11 mmol/L (10-20); BUN (Urea Nitrogen) 5 mg/dL (8.9-20.6); Calc. Creatinine Clearance 241 mL/min (70-130); Calcium 8.9 mg/dL (7.8-10.44); Carbon Dioxide 34 mmol/L (22-29); Chloride 100 mmol/L (98-107); Estimated GFR 119; Glucose 112 mg/dL (70-105); Potassium 2.9 mmol/L (3.5-5.1); Sodium 142 mmol/L (136-145)
[2024-06-03] MEDS: Potassium Chloride 20 MEQ in Premix 1 BAG IVPB SCH ×2 (13:18→21:40)
[2024-06-03 14:14] VITALS: BMI 34.1
[2024-06-04] MEDS: Lorazepam 1 MG TAB PER TUBE PRN (03:58)
[2024-06-04 06:33] LABS: #Basophils Less than 0.03 10x3/uL (0.0-0.2); %Basophils 0.2 % (0.0-1.0); %Eosinophils 2.3 % (0.0-10.0); %Lymphocytes 18.4 % (21.0-51.0); %Monocytes 10.7 % (0.0-10.0); %Neutrophils 68.2 % (42.0-75.0); Hematocrit 39.7 % (42.0-52.0); Hemoglobin 12.2 g/dL (14.0-18.0); Mean Corpuscular HGB CONC 30.7 g/dL (32.0-36.0); Mean Corpuscular Volume 87.8 fL (78.0-98.0); Mean Platelet Volume 12.5 fL (7.4-10.4); Platelet Count 202 10x3/uL (130-400); RBC Distribution Width 13.8 % (11.5-14.5); Red Blood Cell (RBC) Count 4.52 mill/uL (4.70-6.10)
[2024-06-04 06:51] LABS: Anion Gap 10 mmol/L (10-20); BUN (Urea Nitrogen) 7 mg/dL (8.9-20.6); Calc. Creatinine Clearance 265 mL/min (70-130); Carbon Dioxide 34 mmol/L (22-29); Chloride 99 mmol/L (98-107); Estimated GFR 123; Glucose 104 mg/dL (70-105); Magnesium 2.1 mg/dL (1.6-2.6); Potassium 3.2 mmol/L (3.5-5.1); Sodium 140 mmol/L (136-145)
[2024-06-04] MEDS: Potassium Chloride 20 MEQ in Premix 1 BAG IVPB SCH (09:48)
[2024-06-04] MEDS: Potassium Bicarbonate/Cit Ac 20 MEQ TAB PO SCH (16:40)
[2024-06-04] MEDS ORDERED: Ipratropium/Albuterol 3 ML NEB NEB PRN (18:38)
[2024-06-05 06:36] LABS: Anion Gap 11 mmol/L (10-20); BUN (Urea Nitrogen) 5 mg/dL (8.9-20.6); Calc. Creatinine Clearance 230 mL/min (70-130); Calcium 9.4 mg/dL (7.8-10.44); Carbon Dioxide 36 mmol/L (22-29); Chloride 100 mmol/L (98-107); Estimated GFR 118; Glucose 120 mg/dL (70-105); Potassium 3.2 mmol/L (3.5-5.1); Sodium 144 mmol/L (136-145)
[2024-06-05] MEDS: Potassium Bicarbonate/Cit Ac 20 MEQ TAB PER TUBE SCH (08:05)
[2024-06-05] MEDS: predniSONE 20 MG TAB PO SCH (08:06)
[2024-06-05] MEDS ORDERED: Acetaminophen 325 MG TAB PO PRN (14:44)
[2024-06-05] MEDS ORDERED: levETIRAcetam 500 MG TAB PO SCH (21:00)
[2024-06-05] MEDS: levETIRAcetam 500 mg/5 ml Oral Solution PO SCH (21:29)
[2024-06-05] MEDS: Multivit, Therapeutic 1 TAB PO SCH (21:31)
[2024-06-06 06:13] LABS: Anion Gap 11 mmol/L (10-20); BUN (Urea Nitrogen) 4 mg/dL (8.9-20.6); Calc. Creatinine Clearance 241 mL/min (70-130); Calcium 8.9 mg/dL (7.8-10.44); Carbon Dioxide 33 mmol/L (22-29); Chloride 99 mmol/L (98-107); Estimated GFR 119; Glucose 121 mg/dL (70-105); Potassium 3.4 mmol/L (3.5-5.1); Sodium 140 mmol/L (136-145)
[2024-06-06] MEDS ORDERED: Insulin Glargine 30 UNITS/0.3 ML VIAL SC SCH (09:00)
[2024-06-06] MEDS: Pantoprazole DR 40 MG TAB PO SCH (10:13)
[2024-06-06] MEDS: Lisinopril 10 MG TAB PO SCH (10:13)
[2024-06-06] MEDS: Potassium Chloride 10 MEQ TAB PO SCH (10:14)
[2024-06-06] MEDS: Atorvastatin Calcium 20 MG TAB PO SCH (10:14)
[2024-06-06] MEDS: Insulin Glargine 30 UNITS/0.3 ML VIAL SC SCH (10:15)
[2024-06-06] MEDS: Insulin Lispro 100 UNIT/ML 10 ML VIAL SC PRN (16:37)
[2024-06-06] MEDS: Lorazepam 0.5 MG TAB PO SCH (20:19)
[2024-06-07 05:12] LABS: #Basophils Less than 0.03 10x3/uL (0.0-0.2); %Basophils 0.3 % (0.0-1.0); %Eosinophils 2.6 % (0.0-10.0); %Lymphocytes 17.6 % (21.0-51.0); %Monocytes 12.9 % (0.0-10.0); %Neutrophils 66.3 % (42.0-75.0); Hematocrit 40.6 % (42.0-52.0); Hemoglobin 12.3 g/dL (14.0-18.0); Mean Corpuscular HGB CONC 30.3 g/dL (32.0-36.0); Mean Corpuscular Hemoglobin 27.6 pg (27.0-31.0); Mean Platelet Volume 12.4 fL (7.4-10.4); Platelet Count 168 10x3/uL (130-400); RBC Distribution Width 13.6 % (11.5-14.5); Red Blood Cell (RBC) Count 4.46 mill/uL (4.70-6.10)
[2024-06-07 05:38] LABS: Anion Gap 13 mmol/L (10-20); BUN (Urea Nitrogen) Less than 4 mg/dL (8.9-20.6); Calc. Creatinine Clearance 234 mL/min (70-130); Calcium 8.8 mg/dL (7.8-10.44); Carbon Dioxide 33 mmol/L (22-29); Chloride 99 mmol/L (98-107); Estimated GFR 118; Glucose 122 mg/dL (70-105); Potassium 3.8 mmol/L (3.5-5.1); Sodium 141 mmol/L (136-145)
[2024-06-07 08:30] VITALS: TEMP 97.9
[2024-06-07 17:35] VITALS: BP 135/91
[2024-06-08] MEDS ORDERED: Lisinopril 20 MG TAB PO SCH (09:00)
== END 2024-06-07 22:45 | disposition home or self-care (01) | DRG 4 ==
LOC: ERS 16:57 → CCU 18:48 → IMCU/EMU 05-24 19:22 → T4-B 05-30 09:29
PROVIDERS: ADMIT Internal Medicine; ATTEND Family Medicine
PROC: 0BH17EZ Insertion of Endotracheal Airway into Trachea, Via Natural or Artificial Opening (ICD-10-PCS; 2024-05-04)
PROC: 4A133R1 Monitoring of Arterial Saturation, Peripheral, Percutaneous Approach (ICD-10-PCS; 2024-05-04)
PROC: 3E033XZ Introduction of Vasopressor into Peripheral Vein, Percutaneous Approach (ICD-10-PCS; 2024-05-04)
PROC: 0W993ZX Drainage of Right Pleural Cavity, Percutaneous Approach, Diagnostic (ICD-10-PCS; 2024-05-06)
PROC: 0W993ZX Drainage of Right Pleural Cavity, Percutaneous Approach, Diagnostic (ICD-10-PCS; 2024-05-10)
PROC: 0B113Z4 Bypass Trachea to Cutaneous, Percutaneous Approach (ICD-10-PCS; principal; 2024-05-16)
PROC: 5A1955Z Respiratory Ventilation, Greater than 96 Consecutive Hours (ICD-10-PCS; 2024-05-16)
PROC: 0DH63UZ Insertion of Feeding Device into Stomach, Percutaneous Approach (ICD-10-PCS; 2024-05-16)
PROC: 0BP1XFZ Removal of Tracheostomy Device from Trachea, External Approach (ICD-10-PCS; 2024-05-16)
DX: A40.1 Sepsis due to streptococcus, group B (principal); J18.9 Pneumonia, unspecified organism; R65.21 Severe sepsis with septic shock; J96.01 Acute respiratory failure with hypoxia; J96.02 Acute respiratory failure with hypercapnia; C96.6 Unifocal Langerhans-cell histiocytosis; J45.901 Unspecified asthma with (acute) exacerbation; E23.2 Diabetes insipidus; Z99.11 Dependence on respirator [ventilator] status; N17.9 Acute kidney failure, unspecified; J90 Pleural effusion, not elsewhere classified; G40.909 Epilepsy, unspecified, not intractable, without status epilepticus; M21.372 Foot drop, left foot; R13.12 Dysphagia, oropharyngeal phase; R00.1 Bradycardia, unspecified; R53.81 Other malaise; E78.5 Hyperlipidemia, unspecified; K59.00 Constipation, unspecified; E11.65 Type 2 diabetes mellitus with hyperglycemia; E66.01 Morbid (severe) obesity due to excess calories; F41.9 Anxiety disorder, unspecified; Z91.014 Allergy to mammalian meats; Z79.899 Other long term (current) drug therapy; Z79.84 Long term (current) use of oral hypoglycemic drugs; Z79.4 Long term (current) use of insulin; Z79.891 Long term (current) use of opiate analgesic; Z68.34 Body mass index [BMI] 34.0-34.9, adult; R31.9 Hematuria, unspecified; E11.22 Type 2 diabetes mellitus with diabetic chronic kidney disease
CPT/HCPCS: 36415; 36416; 36600; 70551; 71045; 71260; 74018; 74230; 80048; 80053; 80202; 81001; 82150; 82805; 82945; 83036; 83605; 83615; 83735; 83880; 83986; 84145; 84157; 84443; 84478; 84484; 85025; 85060; 85610; 85730; 87040; 87070; 87077; 87086; 87116; 87149; 87186; 87205; 87206; 88112; 88305; 89051; 93005; 93306; 93970; 94002; 94003; 94640; 94660; 94760; 96365; 96366; 96367; 96368; 96375; J0171; J0360; J0461; J0665; J0692; J1170; J1642; J1652; J1815; J1940; J1953; J1956; J2060; J2250; J2272; J2405; J2470; J2597; J2704; J2765; J2919; J3010; J3370; J3475; J3480; J7030; J7050; J7070; J7120; J7512; J7620; P9047; Q9967

== ENCOUNTER 2024-06-21 02:42 | Inpatient (IN) | payer MEDICAID, SELFPAY ==
[2024-06-21 03:35] LABS: #Basophils 0.03 10x3/uL (0.0-0.2); %Basophils 0.4 % (0.0-1.0); %Eosinophils 5.1 % (0.0-10.0); %Lymphocytes 17.3 % (21.0-51.0); %Monocytes 9.8 % (0.0-10.0); Hemoglobin 12.3 g/dL (14.0-18.0); Mean Corpuscular HGB CONC 30.8 g/dL (32.0-36.0); Mean Corpuscular Hemoglobin 27.6 pg (27.0-31.0); Mean Corpuscular Volume 89.7 fL (78.0-98.0); Mean Platelet Volume 11.5 fL (7.4-10.4); Platelet Count 215 10x3/uL (130-400); RBC Distribution Width 13.2 % (11.5-14.5); Red Blood Cell (RBC) Count 4.46 mill/uL (4.70-6.10)
[2024-06-21 04:08] LABS: ALT (SGPT) 13 U/L (8-55); AST (SGOT) 13 U/L (5-34); Albumin 2.9 g/dL (3.5-5.0); Alkaline Phosphatase 109 U/L (40-110); Anion Gap 15 mmol/L (10-20); BUN (Urea Nitrogen) 5 mg/dL (8.9-20.6); Bilirubin, Total 0.2 mg/dL (0.2-1.2); Calc. Creatinine Clearance 0 mL/min (70-130); Calcium 9.3 mg/dL (7.8-10.44); Carbon Dioxide 28 mmol/L (22-29); Chloride 101 mmol/L (98-107); Estimated GFR 119; Globulin 4.5 g/dL (2.4-3.5); Glucose 114 mg/dL (70-105); Lipase 61 U/L (8-78); Potassium 3.9 mmol/L (3.5-5.1); Protein, Total 7.4 g/dL (6.0-8.3); Sodium 140 mmol/L (136-145)
[2024-06-21 05:42] LABS: Magnesium 1.8 mg/dL (1.6-2.6)
[2024-06-21 05:46] LABS: Troponin I Less than 0.010 ng/mL (< 0.028)
[2024-06-21] MEDS ORDERED: Ondansetron PF 4 MG/2 ML Vial ONE (05:48)
[2024-06-21] MEDS ORDERED: Morphine 4 MG/ML VIAL ONE (05:48)
[2024-06-21 07:15] LABS: Bacteria/HPF None Seen HPF (None Seen); Bilirubin Negative (Negative); Blood, Urine Negative (Negative); CAUTI Indications for Culture Immunosuppressed; Clarity Clear (Clear); Glucose, Urine (Dipstick) 50 mg/dL (Negative); Ketone, Urine Negative (Negative); Leukocyte Negative Leu/uL (Negative); Nitrite Negative (Negative); Protein, Urine (Dipstick) Negative (Neg-Trace); RBC/HPF 0-3 HPF (0-3); Squamous Epithelial None Seen HPF (0-3); Urobilinogen Normal mg/dL (Less than 2); WBC/HPF 0-3 HPF (0-3); pH, Urine 6.5 (5.0-9.0)
[2024-06-21 07:25] LABS: Specific Gravity, Urine 1.006 (1.002-1.036)
[2024-06-21 07:26] LABS: Urine Culture Reflex No No; Urine Culture Reflex Yes Yes
[2024-06-21] MEDS ORDERED: Cefepime 2 GM VIAL ONE (07:37)
[2024-06-21] MEDS ORDERED: Sodium Chloride 0.9% 100 ML ONE (07:37)
[2024-06-21] MEDS ORDERED: Vancomycin 1 GM/200 ML (FROZEN) BAG ONE (07:38)
[2024-06-21] MEDS ORDERED: Acetaminophen 325 MG TAB PO PRN (08:39)
[2024-06-21] MEDS ORDERED: Dextrose 50% Abboject 50 ML SYRINGE SLOW IVP PRN (08:39)
[2024-06-21] MEDS ORDERED: Glucagon 1 MG/ML KIT IM PRN (08:39)
[2024-06-21] MEDS ORDERED: Dextrose 5% in Water 1,000 ML IV PRN (08:39)
[2024-06-21 09:30] LABS: Troponin I Less than 0.010 ng/mL (< 0.028)
[2024-06-21 10:44] VITALS: BMI 36.8
[2024-06-21] MEDS: Lisinopril 20 MG TAB PO SCH (10:49)
[2024-06-21] MEDS: levETIRAcetam 500 MG TAB PO SCH (10:49)
[2024-06-21] MEDS: Polyethylene Glycol 3350 17 GM Packet PO SCH (10:50)
[2024-06-21] MEDS: Morphine 4 MG/ML VIAL SLOW IVP PRN (10:53)
[2024-06-21] MEDS: Insulin Glargine 30 UNITS/0.3 ML VIAL SC SCH (11:07)
[2024-06-21 12:14] LABS: Troponin I Less than 0.010 ng/mL (< 0.028)
[2024-06-21] MEDS: Pantoprazole 40 MG VIAL IVP SCH ×2 (13:11→22:10)
[2024-06-21] MEDS: levETIRAcetam 500 mg/5 ml Oral Solution PO SCH ×2 (13:12→22:10)
[2024-06-21] MEDS: Vancomycin (BATCH) 1.5 GM in Premix 1 BAG IVPB SCH (13:12)
[2024-06-21] MEDS: Mag-Al 1200 mg/1200 mg/30 ML UDCUP PO SCH (13:12)
[2024-06-21] MEDS: Furosemide 40 MG TAB PO SCH (13:13)
[2024-06-21] MEDS: Cefepime 2 GM in Sodium Chloride 0.9% 100 ML IVPB SCH (15:35)
[2024-06-21] MEDS ORDERED: Iopamidol-370 76% 500 ML MDV (1 ML CHARGE) ONE (15:36)
[2024-06-21] MEDS: metFORMIN 500 MG TAB PO SCH (18:46)
[2024-06-21] MEDS: HYDROcodone/Acetaminophen 5/325 mg Tablet PO PRN (22:10)
[2024-06-21] MEDS: Atorvastatin Calcium 20 MG TAB PO SCH (22:10)
[2024-06-21] MEDS: Senokot S 8.6-50 MG TAB PO SCH (22:13)
[2024-06-22] MEDS: VANCOMYCIN 1.25 GM/250 ML BAG 1.25 GM in Premix 1 BAG IVPB SCH (00:38)
[2024-06-22 04:15] LABS: #Basophils Less than 0.03 10x3/uL (0.0-0.2); %Basophils 0.3 % (0.0-1.0); %Eosinophils 5.2 % (0.0-10.0); %Lymphocytes 13.3 % (21.0-51.0); %Monocytes 9.2 % (0.0-10.0); %Neutrophils 71.7 % (42.0-75.0); Hematocrit 37.9 % (42.0-52.0); Hemoglobin 11.6 g/dL (14.0-18.0); Mean Corpuscular HGB CONC 30.6 g/dL (32.0-36.0); Mean Corpuscular Hemoglobin 26.9 pg (27.0-31.0); Mean Corpuscular Volume 87.7 fL (78.0-98.0); Mean Platelet Volume 11.3 fL (7.4-10.4); Platelet Count 216 10x3/uL (130-400); RBC Distribution Width 13.2 % (11.5-14.5); Red Blood Cell (RBC) Count 4.32 mill/uL (4.70-6.10)
[2024-06-22 04:40] LABS: Anion Gap 11 mmol/L (10-20); BUN (Urea Nitrogen) Less than 4 mg/dL (8.9-20.6); Calc. Creatinine Clearance 283 mL/min (70-130); Calcium 8.6 mg/dL (7.8-10.44); Carbon Dioxide 32 mmol/L (22-29); Chloride 102 mmol/L (98-107); Estimated GFR 123; Glucose 118 mg/dL (70-105); Potassium 3.5 mmol/L (3.5-5.1); Sodium 141 mmol/L (136-145)
[2024-06-22 04:53] LABS: Vancomycin, Random 16.8 ug/mL (See Comment)
[2024-06-22] MEDS: Polyethylene Glycol 3350 17 GM Packet PO SCH (09:40)
[2024-06-22] MEDS: Lidocaine 2% Viscous Solution 10 ML, Aluminum & Magnesium Hydroxide 30 ML SSW SCH (21:48)
[2024-06-23 04:58] LABS: #Basophils Less than 0.03 10x3/uL (0.0-0.2); %Basophils 0.3 % (0.0-1.0); %Eosinophils 4.2 % (0.0-10.0); %Lymphocytes 15.4 % (21.0-51.0); %Monocytes 9.9 % (0.0-10.0); %Neutrophils 69.9 % (42.0-75.0); Hematocrit 37.3 % (42.0-52.0); Hemoglobin 11.5 g/dL (14.0-18.0); Mean Corpuscular HGB CONC 30.8 g/dL (32.0-36.0); Mean Corpuscular Hemoglobin 26.7 pg (27.0-31.0); Mean Corpuscular Volume 86.5 fL (78.0-98.0); Mean Platelet Volume 11.7 fL (7.4-10.4); Platelet Count 221 10x3/uL (130-400); RBC Distribution Width 13.2 % (11.5-14.5); Red Blood Cell (RBC) Count 4.31 mill/uL (4.70-6.10)
[2024-06-23 05:25] LABS: Anion Gap 13 mmol/L (10-20); BUN (Urea Nitrogen) 4 mg/dL (8.9-20.6); Calc. Creatinine Clearance 283 mL/min (70-130); Calcium 8.6 mg/dL (7.8-10.44); Carbon Dioxide 31 mmol/L (22-29); Chloride 100 mmol/L (98-107); Estimated GFR 123; Glucose 106 mg/dL (70-105); Potassium 3.4 mmol/L (3.5-5.1); Sodium 141 mmol/L (136-145)
[2024-06-23] MEDS: Ondansetron PF 4 MG/2 ML Vial IVP PRN (09:02)
[2024-06-23] MEDS: Fluconazole In NaCl,Iso-Osm 100 MG in Admixture Fee 1 EACH IVPB SCH (09:23)
[2024-06-23] MEDS: Potassium Chloride 20 MEQ TAB PO SCH (09:45)
[2024-06-23] MEDS: Insulin Lispro 100 UNIT/ML 10 ML VIAL SC PRN (10:38)
[2024-06-23 15:25] VITALS: BP 133/79; TEMP 98
== END 2024-06-23 15:51 | disposition home or self-care (01) | DRG 186 ==
LOC: ERS 02:42 → 2NO 09:42
PROVIDERS: ADMIT Family Medicine; ATTEND Internal Medicine
DX: J94.8 Other specified pleural conditions (principal); J96.01 Acute respiratory failure with hypoxia; B37.0 Candidal stomatitis; I50.22 Chronic systolic (congestive) heart failure; K20.90 Esophagitis, unspecified without bleeding; E11.9 Type 2 diabetes mellitus without complications; G40.909 Epilepsy, unspecified, not intractable, without status epilepticus; Z79.899 Other long term (current) drug therapy; Z79.4 Long term (current) use of insulin; I11.0 Hypertensive heart disease with heart failure; K59.00 Constipation, unspecified; D64.9 Anemia, unspecified
CPT/HCPCS: 36415; 36416; 71045; 71275; 74177; 80048; 80053; 80202; 81001; 83690; 83735; 83880; 84484; 85025; 87040; 87081; 87086; 93005; 96374; 96375; J0692; J1450; J1642; J1815; J2272; J2405; J2470; J3370; J3370-JW; Q9967

== ENCOUNTER 2024-08-15 06:11 | Emergency (ER) | payer MEDICAID ==
[2024-08-15 06:54] LABS: #Basophils 0.04 10x3/uL (0.0-0.2); %Basophils 0.5 % (0.0-1.0); %Eosinophils 2.7 % (0.0-10.0); %Lymphocytes 16.1 % (21.0-51.0); %Monocytes 10.4 % (0.0-10.0); %Neutrophils 70.1 % (42.0-75.0); Hematocrit 38.9 % (42.0-52.0); Hemoglobin 12.3 g/dL (14.0-18.0); Mean Corpuscular HGB CONC 31.6 g/dL (32.0-36.0); Mean Corpuscular Hemoglobin 26.1 pg (27.0-31.0); Mean Corpuscular Volume 82.4 fL (78.0-98.0); Mean Platelet Volume 11.1 fL (7.4-10.4); Platelet Count 271 10x3/uL (130-400); RBC Distribution Width 12.8 % (11.5-14.5); Red Blood Cell (RBC) Count 4.72 mill/uL (4.70-6.10)
[2024-08-15] MEDS ORDERED: Morphine 4 MG/ML VIAL ONE ×3 (07:11→10:14)
[2024-08-15] MEDS ORDERED: Ondansetron PF 4 MG/2 ML Vial ONE (07:12)
[2024-08-15 07:19] LABS: ALT (SGPT) 7 U/L (8-55); AST (SGOT) 9 U/L (5-34); Albumin 3.2 g/dL (3.5-5.0); Alkaline Phosphatase 96 U/L (40-110); Anion Gap 13 mmol/L (10-20); BUN (Urea Nitrogen) 9 mg/dL (8.9-20.6); Bilirubin, Total 0.2 mg/dL (0.2-1.2); Calc. Creatinine Clearance 0 mL/min (70-130); Calcium 9.3 mg/dL (7.8-10.44); Carbon Dioxide 31 mmol/L (22-29); Chloride 99 mmol/L (98-107); Estimated GFR 116; Globulin 4.8 g/dL (2.4-3.5); Glucose 126 mg/dL (70-105); Lipase 21 U/L (8-78); Potassium 3.6 mmol/L (3.5-5.1); Sodium 139 mmol/L (136-145)
[2024-08-15 07:26] LABS: Magnesium 2.1 mg/dL (1.6-2.6)
[2024-08-15 07:32] LABS: Troponin I Less than 0.010 ng/mL (< 0.028)
[2024-08-15 08:18] LABS: INR-International Normal Ratio 0.9; Prothrombin Time 12.4 sec (12.0-14.7)
[2024-08-15 08:19] LABS: PTT 38.1 sec (22.9-36.1)
[2024-08-15] MEDS ORDERED: Iopamidol-370 76% 500 ML MDV (1 ML CHARGE) ONE (09:05)
[2024-08-15 09:18] LABS: Bacteria/HPF None Seen HPF (None Seen); Bilirubin Negative (Negative); Blood, Urine Negative (Negative); CAUTI Indications for Culture Dysuria,urgency,freq; Clarity Clear (Clear); Glucose, Urine (Dipstick) Normal (Negative); Ketone, Urine Negative (Negative); Leukocyte Negative Leu/uL (Negative); Nitrite Negative (Negative); Protein, Urine (Dipstick) Negative (Neg-Trace); RBC/HPF 0-3 HPF (0-3); Specific Gravity, Urine 1.022 (1.002-1.036); Squamous Epithelial 0-3 HPF (0-3); Urobilinogen Normal mg/dL (Less than 2); WBC/HPF 0-3 HPF (0-3); pH, Urine 7.5 (5.0-9.0)
[2024-08-15 09:20] LABS: Urine Culture Reflex No No
[2024-08-15] MEDS ORDERED: Dicyclomine 20 MG TAB ONE (10:14)
== END 2024-08-15 10:24 | disposition home or self-care (01) ==
LOC: ERS 06:11
DX: R10.9 Unspecified abdominal pain (principal); K59.00 Constipation, unspecified; R11.2 Nausea with vomiting, unspecified; E11.9 Type 2 diabetes mellitus without complications; I10 Essential (primary) hypertension
CPT/HCPCS: 36415; 74177; 80053; 81001; 83690; 83735; 84484; 85025; 85610; 85730; 96374; 96375; 96376; J2272; J2405; Q9967